=== PATIENT | male | born 1935 | race Caucasian/White ===

== ENCOUNTER → 2017-10-10 08:30 | Day surgery (SDC) | payer MEDICARE, SELFPAY ==
[2017-10-04 16:04] VITALS: BMI 27.6
[2017-10-10 09:20] VITALS: BP 125/69; PULSE 71; RESP 16; TEMP 36.3; O2SAT 94; BMI 27.6
[2017-10-10 09:43] LABS: INR 2.4 (0.9-1.3); Prothrombin Time 25.8 SECONDS (10.1-12.7)
[2017-10-10 09:51] LABS: C-Reactive Protein Quant 1.6 mg/dL (<1.0)
[2017-10-10 09:55] LABS: Erythrocyte Sedimentation Rate 57 MM/HR (0-15)
--- NOTE | 2017-10-10 10:02 | SUR.PREOP ---
patients case was canceled due to increased INR. pt's iv d/jodi and pt is getting dressed. No complaints voiced at present time. left foot dressing rewrapped and re dressed.
--- NOTE | 2017-10-10 10:05 | SUR.PREOP ---
patient is d/jodi with in wheelchair.
--- NOTE | 2017-10-10 10:09 | PM.PREOP ---
Pre-operative Note Interval Note Pre-op Check: History & Physical Reviewed by Physician H&P completed within 30 days and has changed as indicated here:: The patient was seen in the preoperative area point of care INR was 2.8. Formal lab INR was 2.4, and 2 high for surgery. This was discussed with the patient and his . Surgery was canceled for today due to persistent and high INR despite being off Coumadin for 1 week. Patient states he may have had an accidental dose or 2 during that time.
[2017-10-10 10:21] LABS: Prealbumin 19.4 mg/dL (17.6-36.0)
== END ==
PROVIDERS: PCP Physician Assistant; Visit Provider Orthopaedic Surgery Foot and Ankle Surgery
DX: E11.621 Type 2 diabetes mellitus with foot ulcer (principal); Z53.09 Procedure and treatment not carried out because of other contraindication
CPT/HCPCS: 28810; 82040; 84134; 85610; 85651; 86140

== ENCOUNTER → 2017-10-11 13:45 | Outpatient (CLI) | payer MEDICARE, SELFPAY | PROVIDERS: PCP Family Medicine; Visit Provider Internal Medicine | DX: E11.621 Type 2 diabetes mellitus with foot ulcer (principal); L97.522 Non-pressure chronic ulcer of other part of left foot with fat layer exposed; L97.512 Non-pressure chronic ulcer of other part of right foot with fat layer exposed; I70.248 Atherosclerosis of native arteries of left leg with ulceration of other part of lower leg; M79.671 Pain in right foot | CPT/HCPCS: 11042 ==

== ENCOUNTER → 2017-10-20 14:45 | Outpatient (CLI) | payer MEDICARE, SELFPAY | PROVIDERS: PCP Family Medicine; Visit Provider Internal Medicine | DX: E11.621 Type 2 diabetes mellitus with foot ulcer (principal); L97.522 Non-pressure chronic ulcer of other part of left foot with fat layer exposed; L97.512 Non-pressure chronic ulcer of other part of right foot with fat layer exposed; I70.248 Atherosclerosis of native arteries of left leg with ulceration of other part of lower leg; I70.238 Atherosclerosis of native arteries of right leg with ulceration of other part of lower leg | CPT/HCPCS: 11042; 87070; 87075; 87077; 87147; 87186; 87205 ==

== ENCOUNTER → 2017-10-24 15:04 | Outpatient (CLI) | payer MEDICARE, SELFPAY ==
--- NOTE | 2017-10-24 | DI.US.S_ITS ---
PROCEDURE: US SHAILESH LIMITED SINGLE LEVEL INDICATIONS: ARTERIAL INSUFFICENCY WITH ISCHEMIC ULCER TECHNIQUE: Ankle-brachial indices were obtained bilaterally and recorded. COMPARISONS: FINDINGS: Right ankle brachial index (SHAILESH): 0.52 Left ankle brachial index (SHAILESH): 0.63 IMPRESSION: 1. 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 2. 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 Dictated by: Rafita OLMEDO Interpreted: Raad Tobar MD on 10/24/2017 at 16:32 Approved by: Alonzo Beltran M.D. on 10/25/2017 at 8:56
== END ==
PROVIDERS: PCP Family Medicine; Visit Provider Orthopaedic Surgery Foot and Ankle Surgery
DX: I70.212 Atherosclerosis of native arteries of extremities with intermittent claudication, left leg (principal); I70.201 Unspecified atherosclerosis of native arteries of extremities, right leg
CPT/HCPCS: 93922

== ENCOUNTER → 2017-10-27 16:06 | Outpatient (CLI) | payer MEDICARE, SELFPAY | PROVIDERS: PCP Family Medicine; Visit Provider Internal Medicine | DX: E11.621 Type 2 diabetes mellitus with foot ulcer (principal); L97.522 Non-pressure chronic ulcer of other part of left foot with fat layer exposed; L97.512 Non-pressure chronic ulcer of other part of right foot with fat layer exposed; T81.89XD Other complications of procedures, not elsewhere classified, subsequent encounter; S71.102D Unspecified open wound, left thigh, subsequent encounter; I70.248 Atherosclerosis of native arteries of left leg with ulceration of other part of lower leg | CPT/HCPCS: 11042 ==

== ENCOUNTER → 2017-11-02 09:42 | Outpatient (CLI) | payer MEDICARE, SELFPAY ==
--- NOTE | 2017-11-02 | OV.WND_ITS ---
Progress Note Details Patient Name: Jay Lepe Patient Number: [id number] PatientPatientDate: 11/02/2017 Clinician: Chloe Gonzalez Clinician Cosigner: Diane Harrison Physician / Golf Player Assistant: Wilton Holland SUBJECTIVE Chief Complaint This information was obtained from the patient Diabetic foot ulcers to both feet and surgical wound on left thigh. Allergies Luxeyvj-Rhr-Afg Reductase Inhibitors, Sulfa (Sulfonamide Antibiotics), amlodipine HPI This information was obtained from the patient 11/02/17. Seen by Dr. Holland. The patient was seen by Dr. Jonas for the chronic , non- healing left foot Richards grade 3 diabetic ulcers and reportedly has been referred to a banana loader at with fellowship training in reconstructive foot surgery. He suffers from bilateral severe PAD which has complicated and contributed to the very refractory nature of the bilateral diabetic foot ulcers. He does not report increased pain or drainage from these ulcers nor from the slowly healing left thigh surgical wound that we've been monitoring. 10/27/17. Seen by Dr. Holland. The patient does not report any acute changes regarding his bilateral diabetic foot ulcers since his last visit. The wound culture taken from the non-healing left lateral thigh surgical site grew a coag negative Staph and he's been applying topical antibiotic as prescribed. He has an appointment later today with Dr. Jonas to discuss the SHAILESH study that was done on Tuesday and possible amputation of the left 5th MT and toe. He also saw his tunnel kiln operator, Dr. Finney, this week and states there was no change in his care plan. The patient notes he stopped taking spironolactone recently on his own accord however has not informed his other providers of this. He's also not discussed the option of a second opinion in relation to his left leg PAD and surgical options for the left 5th MT yet with his PCP as we'd discussed last week. 10/20/17. Seen by Dr. Holland. The patient does not report any acute changes regarding his bilateral diabetic foot ulcers and he's scheduled to have an SHAILESH study done next Tuesday to further evaluate his bilateral lower leg PAD that's significantly complicating his wound healing. He's also asked me to take a look at a non-healing left posterior thigh surgical wound at the site of a biopsy performed in early August. Of note, his anticoagulation was changed from warfarin to Eliquis since his last visit. 10/11/17. Seen by Dr. Holland. The patient's amputation of the left 5th met head was postponed due to and elevated INR. He also had another arterial Doppler performed today to reevaluate his left lower leg PAD. Of note, he underwent angioplasty under Dr. Rojas, interventional radiology, in August of this year and had angioplasty a few years ago with Dr. Malik whom the patient states accessed the left lower leg from the ankle. He does not report pain or increased drainage associated with the left foot diabetic ulcers but does report some pain associated with the right plantar foot diabetic ulcer. He also notes a new wound over the dorsum of the right foot but does not know how it occurred. His blood sugars have also been a bit elevated over 200 and he's using a walker and diabetic shoes while at home but a cane when away from the house. 09/30/2017. Seen by Dr. Holland. The patient is scheduled for amputation of the left 5th met head and toe next Tuesday. He does not report significant drainage or pain associated with the overlying diabetic ulcer nor the other left and right foot diabetic ulcers since his last visit. His blood sugars continue to be well controlled and he is not currently on antibiotics. 09/22/17. Seen by Dr. Holland. The patient feels his leg and abdominal swelling have been progressing over the past few weeks and he notes he's not sure who manages his diruetics. He does not report significant pain or increased drainage associated with the bilateral diabetic foot ulcers and he's scheduled to see Dr. Jonas later today to discuss surgical options to treat the left lateral and medial DFU's with exposed capsule. His blood sugars also are well controlled. Of note, he reports a growing left lateral thigh lesion also that he first noticed about one month ago. He does not report pain or drainage from the lesion and states he 's not yet discussed this with his PCP. 09/16/17. Seen by Dr. Holland. The patient reports some intermittent pain along the left fifth MTPJ at the site of the diabetic ulcer when walking. He does not report significant drainage associated with this ulcer and or the other left nor right foot diabetic ulcers since his last visit. He is scheduled to see Dr. Jonas next week who is considering possible amputation of the head of the left fifth metatarsal. 09/09/17. Seen by Dr. Holland. The patient was seen by Dr. Jonas today who's consider deep debridement of the left 5th MTPJ noting the overlying Richards grade 3 diabetic foot ulcer. She's reportedly deciding on what type of imaging to order and she performed some debridement today. The patient does not report pain or significant drainage from this site nor the other left and right foot diabetic ulcers. He also underwent angioplasty for his left lower leg PAD 2 weeks ago and does not report any complications. 08/31/17. Seen by Dr. Holland. The patient does not report pain or increased drainage associated with the bilateral foot diabetic ulcers since his last visit and he continues on clindamycin for the Staph haemolyticus positive wound culture taken from the left 5th MTPJ ulcer site last week. He's also scheduled to see Dr. Jonas a week from Tuesday for consideration of possible deep debridement of the left 5th MTPJ ulcer. 08/25/17. Seen by Dr. Holland. The patient does not report pain or increased drainage associated with the bilateral foot diabetic ulcers since his last visit and he's about a week out from angioplasty for left leg PAD. His wound culture taken from the exposed capsule of the left 5th MTPJ grew Staph haemolyticus and he's not currently on antibiotics. He does not report pain a the site nor fevers or feeling unwell in general. 08/19/17. Seen by Dr. Holland. The patient underwent angioplasty last for the left leg PAD and feels his leg pain has mostly resolved since the procedure. He does not report significant drainage or pain associated with the bilateral diabetic foot ulcers nor the left gluteal pressure ulcer and has been offloading the sites and changing dressings as recommended. Also, the patient's blood sugar is again elevated over 250 today and his has been an ongoing issue the past few weeks. 08/10/17. Seen by Dr. Holland. The patient does not report pain associated with the chronic left and right foot diabetic ulcers since his last visit and he's scheduled to see Dr. Rojas tomorrow for intervention to treat his severe PAD of the left lower leg. 08/05/17. Seen by Dr. Holland. The patient does not report pain associated with the chronic left and right foot diabetic ulcers since his last visit. He's scheduled to see Dr. 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 The patient also reports a new ulcer over the left buttock and states it's somewhat tender but he does not report significant drainage from the site. He's applying a topical antibiotic also. 07/29/17. Seen by Dr. Holland. The patient does not report pain associated with the chronic left and right foot diabetic ulcers since his last visit. His blood sugars a significantly elevated today over 250 and he states he ate strawberries last night which may be the cause. He 's also scheduled to see Dr. Rojas on the 08 of August to evaluate his left leg PAD and consider intervention at that time. 07/22/17. Seen by Mike Mireles PA-C. The patient reports no increase in pain or drainage from his ulcers of right and left lower extremities. His leg pain is reportedly stable as well. He notes some blood sugars this week above 150. 07/18/17. Seen by Mike Mireles PA-C. The patient reports bilateral leg pain that occurs with exertion and is relieved by rest. He is under the care of Dr. Malik (Cardiology) who was considering angioplasty to improve his lower extremity circulation but has deferred this option due to poor renal function. The patient reports continued drainage from his lower extremity ulcers. 07/08/17. Seen By Dr. Holland. The patient is a report pain nor significant drainage associated with the chronic right and left foot diabetic ulcers since his last visit. He does feel that the left first toe is a bit red and intermittently tender. His recent wound culture grew a coag-negative staph from the ulcer site and he does not report fevers or feeling unwell in general. 07/01/17. Seen by Dr. Holland. The patient reports some modest pain associated with the chronic right lateral plantar foot diabetic ulcer as well as the right heel diabetic ulcer. He does not report significant drainage drainage from the sites nor the other right and left lower leg diabetic ulcers. He is on Augmentin for the recent positive wound culture is not report any adverse side effects. 06/24/17. Seen by Mike Mireles PA-C. The patient returns to our clinic with diabetic ulcers of both feet and vascular ulcers of both lower legs. He is under the care of Dr. Malik, who ordered an arterial doppler earlier this week. The doppler shows multiple areas of stenosis and occlusion in both lower leg arteries. The patient reports that some of his current ulcers have been present for a very long time while others appeared within the past few days. He wears ugg boots and does not own diabetic shoes. 01/27/17. Seen by Dr. Holland. The patient returns to clinic with a posterior left lower leg ulcer that has been present for at least the past 6-12 months. Of note, the patient somewhat of a poor historian. He does not report pain at the site but states that it has been slowly increasing in size and has been bleeding recently and he's noticed a foul odor over the past few days. He does not report having a biopsy of this lesion and has been placed on antibiotics recently without any improvement. 11/27/[address] Holland. The patient reports that his right foot swelling continues to improve and there's been no drainage from the toe ulcers. 11/13/[address] Holland. The patient underwent additional PCI by Dr. Malik about one week ago and reports significant swelling in the right foot and lower leg the past few days. He does not report pain, fever, or chills and feels the right toe ulcers are improving and have minimal drainage. He's been using gentamicin ointment on the ulcer sites for a MRSA positive wound culture and systemic antibiotics have been deferred due to his history of severe c. difficile colitis. 10/28/14 Seen by Mike Mireles PA-C. The patient had PCI with Dr. Malik and reports that it was partially successful and that Dr. Malik plans to go in from a distal approach and attempt to open up more arteries in his right leg in 4-6 weeks time. The patient reports copious drainage from his toe wounds even after discontinuation of the topical gentamycin. 10/15/[address] Holland. The patient returns to our clinic with new right 2nd and 3rd toe ulcers and he's been referred by Dr. Malik, vascular surgery at [facility], who is planning PCI for severe PAD in the near future. He's not currently on antibiotics, reports minimal pain and drainage at the ulcer sites and he reports claudication but no rest pain today. Past Medical History This information was obtained from the patient Patient has a medical history of: Diabetes Mellitus Hypertension Coronary Artery Disease (CAD) Atrial fibrillation Carotid artery stenosis Transient Ischemic Attack (TIA) Atherosclerosis of lower extremity with claudication (s/p right leg PCI X2 by Dr. Malik in 11/04) Hyperlipidemia Aterial ulcers (right 2nd and 3rd toes; MRSA positive wound culture) Complaints and Symptoms This information was obtained from the patient Patient complains of: General Notes: I have reviewed and concur with the Review of Systems and Past Family Social History documents completed by the clinician, I have reviewed and concur with the Wound Assessment document completed by the clinician Cardiovascular (Central/Peripheral): Lower extremity (leg) swelling Ear/Nose/Mouth/Throat: Hearing Loss / Aid Hematologic/Lymphatic: Bleeding Tendency Integumentary (Hair/Skin/Nails): Open Sore Musculoskeletal: Muscle Weakness Neurological: Loss of Protective Sensation Prior Wound History: Drainage, Erythema, Pain Patient denies complaints or symptoms related to: Cardiovascular (Central): Irregular heart beat Cardiovascular (Central/Peripheral): Intermittent Claudication, Lower extremity (leg) resting pain Constitutional Symptoms (General Health): Chills, Fever, Marked Weight Change Gastrointestinal (GI): Nausea / Vomiting, Stomach/abdominal pain Hematologic/Lymphatic: Bleeding / Clotting Disorders Prior Wound History: Bleeding, Malodor Psychiatric: Memory Loss Respiratory: Oxygen Use, Shortness of Breath OBJECTIVE Constitutional BP elevated; Afebrile; Alert and in no distress. Well developed. Alert. Clean appearing.. Height/Length: 72 in (182.88 cm), Weight: 200.5 lbs (91.14 kgs), BMI: 27.2, Temperature: 97.8 ?F (36.56 ?C), Pulse: 79 bpm, Respiratory Rate: 18 breaths/min, Blood Pressure: 190/83 mmHg, Capillary Blood Glucose: 240 mg/dl, Pulse Oximetry: 94 %. Vital Signs Notes: Glucose per patient, after eating breakfast. Ears, Nose, Mouth, and Throat: Mild hearing deficit. Respiratory: No respiratory distress. Even respirations and without use of accessory muscles.. Cardiovascular: Non-palpable pedal pulses bilaterally. 1+ bilateral lower leg edema. Gastrointestinal (GI): Non-obese. Nondistended.. Integumentary (Hair, Skin) Mild periwound erythema without warmth. Refer to appropriate clinician wound documentation for this visit; right foot ulcer extends to subcut with base partially covered with pink granulation, remainder fibrin and slough, larger than on last review; left lateral foot ulcer extends to bone with overlying black, dry eschar; left 1st MTPJ ulcer extends to capsule which is covered with wet slough; left 1st toe ulcer extends to subcut with dry slough overlying base; left thigh wound extends to subcut with based mostly epithelialized. Wound #6 Right Metatarsal head fifth is a chronic Richards Grade 2 Diabetic Ulcer and has received a status of Not Healed. Subsequent wound encounter measurements are 0.5cm length x 0.5cm width x 0.3cm depth, with an area of 0.25 sq cm and a volume of 0.075 cubic cm. No tunneling has been noted. No sinus tract has been noted. Undermining has been noted at 2:00 and ends at 5:00 with a maximum distance of 0.4cm. There is a moderate amount of hemopurulent drainage noted which has no odor. The patient reports a wound pain of level 0/10. The wound margin is attached. Wound bed has Yes epithelialization, No eschar, Yes slough, Yes pink, firm granulation. The periwound skin moisture is normal. The periwound skin exhibited: Callus, Erythema. The periwound skin did not exhibit: Brawny Induration, Edema, Excoriation, Induration, Crepitus, Fluctuance, Friable, Rash, Atrophie [place], Cyanosis, Ecchymosis, Hemosiderosis , Pallor, Rubor. The temperature of the periwound skin is WNL. Periwound skin presents with s/s of infection. Confirmation Description and Treatment Plan is: Signs and Symptoms Present. Local Pulse is Doppler. Wound #11 Left Metatarsal head first is a chronic Richards Grade 3 Diabetic Ulcer and has received a status of Not Healed. Subsequent wound encounter measurements are 2.1cm length x 1.1cm width x 0.3cm depth, with an area of 2.31 sq cm and a volume of 0.693 cubic cm. Capsule is exposed. No tunneling has been noted. No sinus tract has been noted. No undermining has been noted. There is a moderate amount of sero-sanguineous drainage noted which has no odor. The patient reports a wound pain of level 0/10. The wound margin is attached. Wound bed has No epithelialization, Yes eschar, Yes slough, Yes pink, firm granulation. The periwound skin exhibited: Edema, Induration, Dry/Scaly, Erythema. The periwound skin did not exhibit: Brawny Induration, Excoriation, Callus, Crepitus, Fluctuance, Friable, Rash, Moist, Maceration, Atrophie [place], Cyanosis, Ecchymosis, Hemosiderosis, Pallor , Rubor. The temperature of the periwound skin is WNL. Periwound skin does not exhibit signs or symptoms of infection. Local Pulse is Doppler. Wound #12 Left Great Toe is a chronic Richards Grade 3 Diabetic Ulcer and has received a status of Not Healed. Subsequent wound encounter measurements are 1.2cm length x 0.7cm width x 0.3cm depth, with an area of 0.84 sq cm and a volume of 0.252 cubic cm. No tunneling has been noted. No sinus tract has been noted. No undermining has been noted. There is a moderate amount of sero-sanguineous drainage noted which has no odor. The patient reports a wound pain of level 0/10. The wound margin is callus. Wound bed has No epithelialization, Yes eschar, Yes slough, No granulation. The periwound skin moisture is normal. The periwound skin color is normal. The periwound skin exhibited: Edema, Callus. The periwound skin did not exhibit: Brawny Induration, Excoriation, Induration, Crepitus, Fluctuance, Friable, Rash. The temperature of the periwound skin is WNL. Periwound skin does not exhibit signs or symptoms of infection. Local Pulse is Doppler. Wound #13 Left Metatarsal head fifth is a chronic Richards Grade 3 Diabetic Ulcer and has received a status of Not Healed. Subsequent wound encounter measurements are 3.1cm length x 2.3cm width x 0.3cm depth, with an area of 7.13 sq cm and a volume of 2.139 cubic cm. Capsule is exposed. No tunneling has been noted. No sinus tract has been noted. No undermining has been noted. There is a small amount of sero-sanguineous drainage noted which has no odor. The patient reports a wound pain of level 0/10. The wound margin is attached. Wound bed has No epithelialization, Yes eschar, Yes slough, No granulation. The periwound skin moisture is normal. The periwound skin exhibited: Edema, Callus, Erythema. The periwound skin did not exhibit: Brawny Induration, Excoriation, Induration, Crepitus, Fluctuance, Friable, Rash. The temperature of the periwound skin is WNL. Periwound skin does not exhibit signs or symptoms of infection. Local Pulse is Doppler. Wound #17 Right, Lateral Foot is an acute Richards Grade 2 Diabetic Ulcer and has received an outcome of Healed - no new wound(s). Subsequent wound encounter measurements are 0cm length x 0cm width x 0cm depth, with an area of 0 sq cm and a volume of 0 cubic cm. There was no drainage noted. The patient reports a wound pain of level 0/10. The wound margin is attached. Wound bed has Yes epithelialization, No eschar, No slough, No granulation. The periwound skin moisture is normal. The periwound skin exhibited: Edema, Hemosiderosis. The periwound skin did not exhibit: Brawny Induration, Excoriation, Induration, Callus, Crepitus, Fluctuance, Friable, Rash, Atrophie [place], Cyanosis, Ecchymosis, Erythema, Pallor, Rubor. The temperature of the periwound skin is WNL. Periwound skin does not exhibit signs or symptoms of infection. Local Pulse is Palpable. Wound #18 Left Thigh is an acute Full Thickness Surgical Wound and has received a status of Not Healed. Subsequent wound encounter measurements are 0.5cm length x 0.2cm width x 0.1cm depth, with an area of 0.1 sq cm and a volume of 0.01 cubic cm. No tunneling has been noted. No sinus tract has been noted. No undermining has been noted. There is a small amount of sero-sanguineous drainage noted which has no odor. The patient reports a wound pain of level 0/10. The wound margin is attached. Wound bed has Yes epithelialization, No eschar, Yes slough, Yes pink, firm granulation. The periwound skin texture is normal. The periwound skin moisture is normal. The periwound skin color is normal. The temperature of the periwound skin is WNL. Periwound skin does not exhibit signs or symptoms of infection. Local Pulse is Doppler. Wound #19 Left Fifth Toe is an acute Richards Grade 2 Diabetic Ulcer and has received a status of Not Healed. Subsequent wound encounter measurements are 0.4cm length x 0.3cm width x 0.2cm depth, with an area of 0.12 sq cm and a volume of 0.024 cubic cm. No tunneling has been noted. No sinus tract has been noted. No undermining has been noted. There is a moderate amount of serous drainage noted which has no odor. The patient reports a wound pain of level 0/10. The wound margin is attached. Wound bed has No epithelialization, Yes eschar, Yes slough, No granulation. The periwound skin moisture is normal. The periwound skin color is normal. The periwound skin exhibited: Edema. The periwound skin did not exhibit: Brawny Induration, Excoriation, Induration, Callus, Crepitus, Fluctuance, Friable, Rash. The temperature of the periwound skin is WNL. Periwound skin does not exhibit signs or symptoms of infection. Local Pulse is Doppler. Neurological: Cranial nerves grossly intact with symmetric function normal by informal observation.. ASSESSMENT Active Problems ICD-10 (Encounter Diagnosis) L97.522 - Non-pressure chronic ulcer of other part of left foot with fat layer exposed (Encounter Diagnosis) L97.512 - Non-pressure chronic ulcer of other part of right foot with fat layer exposed (Encounter Diagnosis) E11.621 - Type 2 diabetes mellitus with foot ulcer (Encounter Diagnosis) L97.523 - Non-pressure chronic ulcer of other part of left foot with necrosis of muscle (Encounter Diagnosis) I70.248 - Atherosclerosis of [place] arteries of left leg with ulceration of other part of lower left leg (Encounter Diagnosis) S71.102D - Unspecified open wound, left thigh, subsequent encounter PROCEDURES Wound #6 Wound #6 (Diabetic Ulcer) is located on the right metatarsal head fifth. A skin/ subcutaneous tissue level surgical debridement with a total area debrided of 1.26 sq cm was performed by Wilton Holland MD. Subcutaneous was removed along with devitalized tissue: callus, exudate, and slough. The following instrument(s) were used: curette. Pain control was achieved using 4% Lido. A time out was conducted prior to the start of the procedure. A minimal amount of bleeding was controlled with pressure. The procedure was tolerated well with a pain level of 0 throughout and a pain level of 0 following the procedure. Post Debridement Measurements: 0.9cm length x 1.4cm width x 0.3cm depth; with an area of 1.26 sq cm and a volume of 0.378 cubic cm; Wound #18 Wound #18 (Surgical Wound) is located on the left thigh. A skin/subcutaneous tissue level surgical debridement with a total area debrided of 0.1 sq cm was performed by Wilton Holland MD. Subcutaneous was removed along with devitalized tissue: slough. The following instrument(s) were used: curette. Pain control was achieved using Lidocaine 2 % Jelly. A time out was conducted prior to the start of the procedure. A minimal amount of bleeding was controlled with n/a. The procedure was tolerated well with a pain level of 0 throughout and a pain level of 0 following the procedure. Post Debridement Measurements: 0.5cm length x 0.2cm width x 0.2cm depth; with an area of 0.1 sq cm and a volume of 0.02 cubic cm; Additional Information Muscle fascia or bone removed and sent to pathology?: No Muscle fascia or bone removed and sent to pathology?: No PLAN Wound Orders: Wound #6 Right Metatarsal head fifth Anesthetic Topical Xylocaine to wound bed. - In clinic. Cleanser Cleanse Wound: - Normal saline and gauze in clinic. May use distilled water at home. May Shower. - Use cast protector. Topical Treatments Antibiotic/Antimicrobial Ointment/Cream. - Gentamicin ointment. Dressings Primary dressing: - [place] pad cut in C shape, placed on plantar surface surrounding wound. Cover and secure with: - Foam secured with hypafix tape. Change Dressing: - Change felt pad every 3 days. Apply gentamicin ointment and change foam dressing daily. Wound #11 Left Metatarsal head first Anesthetic Topical Xylocaine to wound bed. - In clinic. Cleanser Cleanse Wound: - Normal saline and gauze in clinic. May use distilled water at home. May Shower. - Use cast protector. Dressings Cover and secure with: - Foam secured with hypafix tape. Change Dressing: - Every other day. Wound #12 Left Great Toe Anesthetic Topical Xylocaine to wound bed. - In clinic. Cleanser Cleanse Wound: - Normal saline and gauze in clinic. May use distilled water at home. May Shower. - Use cast protector. Dressings Cover and secure with: - Foam secured with hypafix tape. Change Dressing: - Every other day. Wound #13 Left Metatarsal head fifth Anesthetic Topical Xylocaine to wound bed. - In clinic. Cleanser Cleanse Wound: - Normal saline and gauze in clinic. May use distilled water at home. May Shower. - Use cast protector. Dressings Cover and secure with: - Foam secured with hypafix tape. Change Dressing: - Every other day. Wound #18 Left Thigh Anesthetic Topical Xylocaine to wound bed. - In clinic. Cleanser Cleanse Wound: - Normal saline and gauze in clinic. May use distilled water at home. May Shower. - Use cast protector. Dressings Cover and secure with: - Silicone bordered foam. Change Dressing: - Every three days. Wound #19 Left Fifth Toe Anesthetic Topical Xylocaine to wound bed. - In clinic. Cleanser Cleanse Wound: - Normal saline and gauze in clinic. May use distilled water at home. May Shower. - Use cast protector. Dressings Cover and secure with: - Foam secured with hypafix tape. Change Dressing: - Every other day. Additional Orders: Off-Loading Keep weight off: - Both feet as much as possible. Use/Wear when Walking: - Custom diabetic shoes. Follow-Up Appointments Return Appointment: - - One week. Other information: If you develop fever, chills, increased pain, drainage, redness or swelling please call our office. If after hours, respond to the ER. Should you experience any significant changes in your wound(s) or have any questions regarding your home care instructions please contact the wound center @ [phone]. If after hours, contact your primary care physician or go to the hospital emergency room. Scribing Attestation I attest, as the nurse, that I scribed these orders for the physician. Laboratory: Bacteria identified in Wound by Culture - #6 Right 5th metatarsal head. Medications prescribed: gentamicin - topical 0.1 % ointment once daily for 7 days for infected ulcer starting 11/02/2017 General Notes: Will call with culture results if any oral antibiotics are needed. I've reviewed the clinician's documentation and agree with the evaluation and plan as written. In addition the patient's right foot ulcer and left thigh demonstrate evidence of non-viable devitalized tissue and they will continue to benefit from sharp debridement to help promote granulation and expedite healing. Also, I've encouraged the patient to schedule an appointment with the banana loader who will be able to coordinate with a vascular surgeon in planning amputation of the left 5th MT and toe. 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 Electronic Signature(s) Signed By: Date: Wilton Holland MD 11/02/2017 15:30:00 Entered By: Wilton Holland on 11/02/2017 15:26:25
== END ==
PROVIDERS: PCP Family Medicine; Visit Provider Internal Medicine
DX: E11.621 Type 2 diabetes mellitus with foot ulcer (principal); L97.512 Non-pressure chronic ulcer of other part of right foot with fat layer exposed; L97.523 Non-pressure chronic ulcer of other part of left foot with necrosis of muscle; I70.248 Atherosclerosis of native arteries of left leg with ulceration of other part of lower leg; S71.102A Unspecified open wound, left thigh, initial encounter
CPT/HCPCS: 11042; 87070; 87075; 87077; 87205

== ENCOUNTER → 2017-11-09 13:58 | Outpatient (CLI) | payer MEDICARE, SELFPAY ==
--- NOTE | 2017-11-09 | OV.WND_ITS ---
Progress Note Details Patient Name: Jay Lepe Patient Number: [id number] PatientPatientDate: 11/09/2017 Clinician: Chloe Gonzalez Clinician Cosigner: Pat Harper Physician / Air Sampler: Igor Mireles SUBJECTIVE Chief Complaint This information was obtained from the patient Diabetic foot ulcers to both feet and surgical wound on left thigh. Allergies Fduzmei-Ual-Ohe Reductase Inhibitors, Sulfa (Sulfonamide Antibiotics), amlodipine HPI This information was obtained from the patient 11/09/17. Seen by Mike Mireles PA-C. The patient reports that he has an appointment tomorrow with a vascular surgeon at the in [place] who will take on his case. Drainage from his ulcers has not increased. 11/02/17. Seen by Dr. Holland. The patient was seen by Dr. Jonas for the chronic , non- healing left foot Richards grade 3 diabetic ulcers and reportedly has been referred to a skull chopper at with fellowship training in reconstructive foot surgery. He suffers from bilateral severe PAD which has complicated and contributed to the very refractory nature of the bilateral diabetic foot ulcers. He does not report increased pain or drainage from these ulcers nor from the slowly healing left thigh surgical wound that we've been monitoring. 10/27/17. Seen by Dr. Holland. The patient does not report any acute changes regarding his bilateral diabetic foot ulcers since his last visit. The wound culture taken from the non-healing left lateral thigh surgical site grew a coag negative Staph and he's been applying topical antibiotic as prescribed. He has an appointment later today with Dr. Jonas to discuss the SHAILESH study that was done on Tuesday and possible amputation of the left 5th MT and toe. He also saw his winch stripper, Dr. Finney, this week and states there was no change in his care plan. The patient notes he stopped taking spironolactone recently on his own accord however has not informed his other providers of this. He's also not discussed the option of a second opinion in relation to his left leg PAD and surgical options for the left 5th MT yet with his PCP as we'd discussed last week. 10/20/17. Seen by Dr. Holland. The patient does not report any acute changes regarding his bilateral diabetic foot ulcers and he's scheduled to have an SHAILESH study done next Tuesday to further evaluate his bilateral lower leg PAD that's significantly complicating his wound healing. He's also asked me to take a look at a non-healing left posterior thigh surgical wound at the site of a biopsy performed in early August. Of note, his anticoagulation was changed from warfarin to Eliquis since his last visit. 10/11/17. Seen by Dr. Holland. The patient's amputation of the left 5th met head was postponed due to and elevated INR. He also had another arterial Doppler performed today to reevaluate his left lower leg PAD. Of note, he underwent angioplasty under Dr. Rojas, interventional radiology, in August of this year and had angioplasty a few years ago with Dr. Malik whom the patient states accessed the left lower leg from the ankle. He does not report pain or increased drainage associated with the left foot diabetic ulcers but does report some pain associated with the right plantar foot diabetic ulcer. He also notes a new wound over the dorsum of the right foot but does not know how it occurred. His blood sugars have also been a bit elevated over 200 and he's using a walker and diabetic shoes while at home but a cane when away from the house. 09/30/2017. Seen by Dr. Holland. The patient is scheduled for amputation of the left 5th met head and toe next Tuesday. He does not report significant drainage or pain associated with the overlying diabetic ulcer nor the other left and right foot diabetic ulcers since his last visit. His blood sugars continue to be well controlled and he is not currently on antibiotics. 09/22/17. Seen by Dr. Holland. The patient feels his leg and abdominal swelling have been progressing over the past few weeks and he notes he's not sure who manages his diruetics. He does not report significant pain or increased drainage associated with the bilateral diabetic foot ulcers and he's scheduled to see Dr. Jonas later today to discuss surgical options to treat the left lateral and medial DFU's with exposed capsule. His blood sugars also are well controlled. Of note, he reports a growing left lateral thigh lesion also that he first noticed about one month ago. He does not report pain or drainage from the lesion and states he 's not yet discussed this with his PCP. 09/16/17. Seen by Dr. Holland. The patient reports some intermittent pain along the left fifth MTPJ at the site of the diabetic ulcer when walking. He does not report significant drainage associated with this ulcer and or the other left nor right foot diabetic ulcers since his last visit. He is scheduled to see Dr. Jonas next week who is considering possible amputation of the head of the left fifth metatarsal. 09/09/17. Seen by Dr. Holland. The patient was seen by Dr. Jonas today who's consider deep debridement of the left 5th MTPJ noting the overlying Richards grade 3 diabetic foot ulcer. She's reportedly deciding on what type of imaging to order and she performed some debridement today. The patient does not report pain or significant drainage from this site nor the other left and right foot diabetic ulcers. He also underwent angioplasty for his left lower leg PAD 2 weeks ago and does not report any complications. 08/31/17. Seen by Dr. Holland. The patient does not report pain or increased drainage associated with the bilateral foot diabetic ulcers since his last visit and he continues on clindamycin for the Staph haemolyticus positive wound culture taken from the left 5th MTPJ ulcer site last week. He's also scheduled to see Dr. Jonas a week from Tuesday for consideration of possible deep debridement of the left 5th MTPJ ulcer. 08/25/17. Seen by Dr. Holland. The patient does not report pain or increased drainage associated with the bilateral foot diabetic ulcers since his last visit and he's about a week out from angioplasty for left leg PAD. His wound culture taken from the exposed capsule of the left 5th MTPJ grew Staph haemolyticus and he's not currently on antibiotics. He does not report pain a the site nor fevers or feeling unwell in general. 08/19/17. Seen by Dr. Holland. The patient underwent angioplasty last for the left leg PAD and feels his leg pain has mostly resolved since the procedure. He does not report significant drainage or pain associated with the bilateral diabetic foot ulcers nor the left gluteal pressure ulcer and has been offloading the sites and changing dressings as recommended. Also, the patient's blood sugar is again elevated over 250 today and his has been an ongoing issue the past few weeks. 08/10/17. Seen by Dr. Holland. The patient does not report pain associated with the chronic left and right foot diabetic ulcers since his last visit and he's scheduled to see Dr. Rojas tomorrow for intervention to treat his severe PAD of the left lower leg. 08/05/17. Seen by Dr. Holland. The patient does not report pain associated with the chronic left and right foot diabetic ulcers since his last visit. He's scheduled to see Dr. 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 The patient also reports a new ulcer over the left buttock and states it's somewhat tender but he does not report significant drainage from the site. He's applying a topical antibiotic also. 07/29/17. Seen by Dr. Holland. The patient does not report pain associated with the chronic left and right foot diabetic ulcers since his last visit. His blood sugars a significantly elevated today over 250 and he states he ate strawberries last night which may be the cause. He 's also scheduled to see Dr. Rojas on the 08 of August to evaluate his left leg PAD and consider intervention at that time. 07/22/17. Seen by Mike Mireles PA-C. The patient reports no increase in pain or drainage from his ulcers of right and left lower extremities. His leg pain is reportedly stable as well. He notes some blood sugars this week above 150. 07/18/17. Seen by Mike Mireles PA-C. The patient reports bilateral leg pain that occurs with exertion and is relieved by rest. He is under the care of Dr. Malik (Cardiology) who was considering angioplasty to improve his lower extremity circulation but has deferred this option due to poor renal function. The patient reports continued drainage from his lower extremity ulcers. 07/08/17. Seen By Dr. Holland. The patient is a report pain nor significant drainage associated with the chronic right and left foot diabetic ulcers since his last visit. He does feel that the left first toe is a bit red and intermittently tender. His recent wound culture grew a coag-negative staph from the ulcer site and he does not report fevers or feeling unwell in general. 07/01/17. Seen by Dr. Holland. The patient reports some modest pain associated with the chronic right lateral plantar foot diabetic ulcer as well as the right heel diabetic ulcer. He does not report significant drainage drainage from the sites nor the other right and left lower leg diabetic ulcers. He is on Augmentin for the recent positive wound culture is not report any adverse side effects. 06/24/17. Seen by Mike Mireles PA-C. The patient returns to our clinic with diabetic ulcers of both feet and vascular ulcers of both lower legs. He is under the care of Dr. Malik, who ordered an arterial doppler earlier this week. The doppler shows multiple areas of stenosis and occlusion in both lower leg arteries. The patient reports that some of his current ulcers have been present for a very long time while others appeared within the past few days. He wears ugg boots and does not own diabetic shoes. 01/27/17. Seen by Dr. Holland. The patient returns to clinic with a posterior left lower leg ulcer that has been present for at least the past 6-12 months. Of note, the patient somewhat of a poor historian. He does not report pain at the site but states that it has been slowly increasing in size and has been bleeding recently and he's noticed a foul odor over the past few days. He does not report having a biopsy of this lesion and has been placed on antibiotics recently without any improvement. 11/27/[address] Holland. The patient reports that his right foot swelling continues to improve and there's been no drainage from the toe ulcers. 11/13/[address] Holland. The patient underwent additional PCI by Dr. Malik about one week ago and reports significant swelling in the right foot and lower leg the past few days. He does not report pain, fever, or chills and feels the right toe ulcers are improving and have minimal drainage. He's been using gentamicin ointment on the ulcer sites for a MRSA positive wound culture and systemic antibiotics have been deferred due to his history of severe c. difficile colitis. 10/28/14 Seen by Mike Mireles PA-C. The patient had PCI with Dr. Malik and reports that it was partially successful and that Dr. Malik plans to go in from a distal approach and attempt to open up more arteries in his right leg in 4-6 weeks time. The patient reports copious drainage from his toe wounds even after discontinuation of the topical gentamycin. 10/15/[address] Holland. The patient returns to our clinic with new right 2nd and 3rd toe ulcers and he's been referred by Dr. Malik, vascular surgery at [facility], who is planning PCI for severe PAD in the near future. He's not currently on antibiotics, reports minimal pain and drainage at the ulcer sites and he reports claudication but no rest pain today. Family History This information was obtained from the patient Unknown History - Maternal Grandparents, Paternal Grandparents, Cancer - Sibling , Diabetes - Mother, Father, Hypertension - Mother, Other - Mother, Stroke - Father Social History This information was obtained from the patient Never smoker, Alcohol Use - None, Caffeine Use - None, Marital Status - , Retired Past Medical History This information was obtained from the patient Patient has a medical history of: Diabetes Mellitus Hypertension Coronary Artery Disease (CAD) Atrial fibrillation Carotid artery stenosis Transient Ischemic Attack (TIA) Atherosclerosis of lower extremity with claudication (s/p right leg PCI X2 by Dr. Malik in 11/04) Hyperlipidemia Aterial ulcers (right 2nd and 3rd toes; MRSA positive wound culture) Complaints and Symptoms This information was obtained from the patient Patient complains of: General Notes: I have reviewed and concur with the Review of Systems and Past Family Social History documents completed by the clinician, I have reviewed and concur with the Wound Assessment document completed by the clinician Cardiovascular (Central/Peripheral): Lower extremity (leg) swelling Ear/Nose/Mouth/Throat: Hearing Loss / Aid Hematologic/Lymphatic: Bleeding Tendency Integumentary (Hair/Skin/Nails): Open Sore Musculoskeletal: Muscle Weakness Neurological: Loss of Protective Sensation Prior Wound History: Drainage, Erythema, Pain Patient denies complaints or symptoms related to: Cardiovascular (Central): Irregular heart beat Cardiovascular (Central/Peripheral): Intermittent Claudication, Lower extremity (leg) resting pain Constitutional Symptoms (General Health): Chills, Fever, Marked Weight Change Gastrointestinal (GI): Nausea / Vomiting, Stomach/abdominal pain Hematologic/Lymphatic: Bleeding / Clotting Disorders Prior Wound History: Bleeding, Malodor Psychiatric: Memory Loss Respiratory: Oxygen Use, Shortness of Breath OBJECTIVE Constitutional Vital signs reviewed and noted. Well developed, lucid, and in no acute distress. . Height/Length: 72 in (182.88 cm), Weight: 200.5 lbs (91.14 kgs), BMI: 27.2, Temperature: 97.7 ?F (36.5 ?C), Pulse: 73 bpm, Respiratory Rate: 18 breaths/min, Blood Pressure: 142/74 mmHg, Capillary Blood Glucose: 104 mg/dl, Pulse Oximetry: 94 %. Vital Signs Notes: Glucose taken in clinic. Eyes: Conjunctiva clear and without icterus. Pupils are equal and round; EOM's intact. Ears, Nose, Mouth, and Throat: Grossly intact. Respiratory: No respiratory distress. Even respirations and without use of accessory muscles.. Integumentary (Hair, Skin) Refer to appropriate clinician wound documentation for this visit; ulcer extends to subcutaneous fat layer. . Wound #6 Right Metatarsal head fifth is a chronic Richards Grade 2 Diabetic Ulcer and has received a status of Not Healed. Subsequent wound encounter measurements are 0.6cm length x 1.1cm width x 0.2cm depth, with an area of 0.66 sq cm and a volume of 0.132 cubic cm. No tunneling has been noted. No sinus tract has been noted. Undermining has been noted at 4:00 and ends at 9:00 with a maximum distance of 0.2cm. There is a moderate amount of sero-sanguineous drainage noted which has no odor. The patient reports a wound pain of level 0/10. The wound margin is attached. Wound bed has Yes epithelialization, No eschar, Yes slough, Yes pink, firm granulation. The periwound skin moisture is normal. The periwound skin exhibited: Callus, Erythema. The periwound skin did not exhibit: Brawny Induration, Edema, Excoriation, Induration, Crepitus, Fluctuance, Friable, Rash, Atrophie [place], Cyanosis, Ecchymosis, Hemosiderosis , Pallor, Rubor. The temperature of the periwound skin is WNL. Periwound skin does not exhibit signs or symptoms of infection. Local Pulse is Doppler. Wound #11 Left Metatarsal head first is a chronic Richards Grade 3 Diabetic Ulcer and has received a status of Not Healed. Subsequent wound encounter measurements are 2.1cm length x 1.2cm width x 0.2cm depth, with an area of 2.52 sq cm and a volume of 0.504 cubic cm. Capsule is exposed. No tunneling has been noted. No sinus tract has been noted. No undermining has been noted. There is a moderate amount of sero-sanguineous drainage noted which has no odor. The patient reports a wound pain of level 0/10. The wound margin is attached. Wound bed has No epithelialization, No eschar, Yes slough, No granulation. The periwound skin exhibited: Edema, Induration, Moist, Erythema. The periwound skin did not exhibit: Brawny Induration, Excoriation, Callus, Crepitus, Fluctuance, Friable, Rash, Dry/Scaly, Maceration, Atrophie [place], Cyanosis, Ecchymosis, Hemosiderosis, Pallor, Rubor. The temperature of the periwound skin is WNL. Periwound skin does not exhibit signs or symptoms of infection. Local Pulse is Doppler. Wound #12 Left Great Toe is a chronic Richards Grade 3 Diabetic Ulcer and has received a status of Not Healed. Subsequent wound encounter measurements are 1.2cm length x 0.7cm width x 0.3cm depth, with an area of 0.84 sq cm and a volume of 0.252 cubic cm. No tunneling has been noted. No sinus tract has been noted. No undermining has been noted. There is a moderate amount of sero-sanguineous drainage noted which has no odor. The patient reports a wound pain of level 0/10. The wound margin is callus. Wound bed has No epithelialization, Yes eschar, Yes slough, Yes bright red, pink, firm granulation. The periwound skin moisture is normal. The periwound skin color is normal. The periwound skin exhibited: Edema, Callus. The periwound skin did not exhibit: Brawny Induration, Excoriation, Induration, Crepitus, Fluctuance, Friable, Rash. The temperature of the periwound skin is WNL. Periwound skin does not exhibit signs or symptoms of infection. Local Pulse is Doppler. Wound #13 Left Metatarsal head fifth is a chronic Richards Grade 3 Diabetic Ulcer and has received a status of Not Healed. Subsequent wound encounter measurements are 3.1cm length x 2.3cm width x 0.4cm depth, with an area of 7.13 sq cm and a volume of 2.852 cubic cm. Capsule is exposed. No tunneling has been noted. No sinus tract has been noted. No undermining has been noted. There is a small amount of sero-sanguineous drainage noted which has no odor. The patient reports a wound pain of level 0/10. The wound margin is attached. Wound bed has No epithelialization, Yes eschar, Yes slough, Yes bright red, firm granulation. The periwound skin moisture is normal. The periwound skin exhibited: Edema, Callus, Erythema. The periwound skin did not exhibit: Brawny Induration, Excoriation, Induration, Crepitus, Fluctuance, Friable, Rash. The temperature of the periwound skin is WNL. Periwound skin does not exhibit signs or symptoms of infection. Local Pulse is Doppler. Wound #18 Left Thigh is an acute Full Thickness Surgical Wound and has received a status of Not Healed. Subsequent wound encounter measurements are 0.2cm length x 0.1cm width x 0.1cm depth, with an area of 0.02 sq cm and a volume of 0.002 cubic cm. No tunneling has been noted. No sinus tract has been noted. No undermining has been noted. There is a small amount of sero-sanguineous drainage noted which has no odor. The patient reports a wound pain of level 0/10. The wound margin is attached. Wound bed has Yes epithelialization, No eschar, Yes slough, Yes pink, firm granulation. The periwound skin texture is normal. The periwound skin moisture is normal. The periwound skin color is normal. The temperature of the periwound skin is WNL. Periwound skin does not exhibit signs or symptoms of infection. Local Pulse is Doppler. Wound #19 Left Fifth Toe is an acute Richards Grade 2 Diabetic Ulcer and has received a status of Not Healed. Subsequent wound encounter measurements are 0.3cm length x 0.3cm width x 0.2cm depth, with an area of 0.09 sq cm and a volume of 0.018 cubic cm. No tunneling has been noted. No sinus tract has been noted. No undermining has been noted. There is a moderate amount of serous drainage noted which has no odor. The patient reports a wound pain of level 0/10. The wound margin is attached. Wound bed has No epithelialization, No eschar, Yes slough, No granulation. The periwound skin moisture is normal. The periwound skin color is normal. The periwound skin exhibited: Edema. The periwound skin did not exhibit: Brawny Induration, Excoriation, Induration, Callus, Crepitus, Fluctuance, Friable, Rash. The temperature of the periwound skin is WNL. Periwound skin does not exhibit signs or symptoms of infection. Local Pulse is Doppler. Psychiatric: Judgement and insight: Normal affect with normal thought pattern. Alert and oriented 3/3. Memory grossly intact.. Normal affect. Mood appropriate.. ASSESSMENT Active Problems ICD-10 (Encounter Diagnosis) L97.522 - Non-pressure chronic ulcer of other part of left foot with fat layer exposed (Encounter Diagnosis) L97.512 - Non-pressure chronic ulcer of other part of right foot with fat layer exposed (Encounter Diagnosis) E11.621 - Type 2 diabetes mellitus with foot ulcer (Encounter Diagnosis) L97.523 - Non-pressure chronic ulcer of other part of left foot with necrosis of muscle (Encounter Diagnosis) I70.248 - Atherosclerosis of mcgrath arteries of left leg with ulceration of other part of lower left leg (Encounter Diagnosis) S71.102D - Unspecified open wound, left thigh, subsequent encounter PLAN Wound Orders: Wound #6 Right Metatarsal head fifth Anesthetic Topical Xylocaine to wound bed. - In clinic. Cleanser Cleanse Wound: - Normal saline and gauze in clinic. May use distilled water at home. May Shower. - Use cast protector. Dressings Primary dressing: - Silver alginate cut to fit in wound base. Cover and secure with: - Foam secured with hypafix tape. Change Dressing: - Every other day. Wound #11 Left Metatarsal head first Anesthetic Topical Xylocaine to wound bed. - In clinic. Cleanser Cleanse Wound: - Normal saline and gauze in clinic. May use distilled water at home. May Shower. - Use cast protector. Dressings Primary dressing: - Silver alginate cut to fit in wound base. Cover and secure with: - Foam secured with hypafix tape. Change Dressing: - Every other day. Wound #12 Left Great Toe Anesthetic Topical Xylocaine to wound bed. - In clinic. Cleanser Cleanse Wound: - Normal saline and gauze in clinic. May use distilled water at home. May Shower. - Use cast protector. Dressings Primary dressing: - Silver alginate cut to fit in wound base. Cover and secure with: - Foam secured with hypafix tape. Change Dressing: - Every other day. Wound #13 Left Metatarsal head fifth Anesthetic Topical Xylocaine to wound bed. - In clinic. Cleanser Cleanse Wound: - Normal saline and gauze in clinic. May use distilled water at home. May Shower. - Use cast protector. Dressings Primary dressing: - Silver alginate cut to fit in wound base. Cover and secure with: - Foam secured with hypafix tape. Change Dressing: - Every other day. Wound #18 Left Thigh Anesthetic Topical Xylocaine to wound bed. - In clinic. Cleanser Cleanse Wound: - Normal saline and gauze in clinic. May use distilled water at home. May Shower. - Use cast protector. Topical Treatments Antibiotic/Antimicrobial Ointment/Cream. - Silver hydrogel. Dressings Cover and secure with: - Covrsite 4x4. Change Dressing: - Twice a week. Wound #19 Left Fifth Toe Anesthetic Topical Xylocaine to wound bed. - In clinic. Cleanser Cleanse Wound: - Normal saline and gauze in clinic. May use distilled water at home. May Shower. - Use cast protector. Dressings Primary dressing: - Silver alginate cut to fit in wound base. Cover and secure with: - Foam secured with hypafix tape. Change Dressing: - Every other day. Additional Orders: Off-Loading Keep weight off: - Both feet as much as possible. Use/Wear when Walking: - Custom diabetic shoes. Follow-Up Appointments Return Appointment: - - One week. Other information: If you develop fever, chills, increased pain, drainage, redness or swelling please call our office. If after hours, respond to the ER. Should you experience any significant changes in your wound(s) or have any questions regarding your home care instructions please contact the wound center @ [phone]. If after hours, contact your primary care physician or go to the hospital emergency room. Scribing Attestation I attest, as the nurse, that I scribed these orders for the physician. General Notes: Podiatry consult at scheduled for tomorrow, please call us with any updates. I've reviewed the clinician's documentation and agree with the evaluation and plan as written. Greater than 25 minutes were spent [id number] with the patient during this encounter and over 50% of that time was spent on education, counseling and coordination of care. We discussed how we will work together with the [facility] to manage his case. Electronic Signature(s) Signed By: Date: Mike Mireles 11/13/2017 16:56:38 Entered By: Mike Mireles on 11/13/2017 16:24:21
== END ==
PROVIDERS: PCP Family Medicine; Visit Provider Physician Assistant
DX: E11.621 Type 2 diabetes mellitus with foot ulcer (principal); L97.522 Non-pressure chronic ulcer of other part of left foot with fat layer exposed; L97.512 Non-pressure chronic ulcer of other part of right foot with fat layer exposed; I70.248 Atherosclerosis of native arteries of left leg with ulceration of other part of lower leg; S71.102D Unspecified open wound, left thigh, subsequent encounter
CPT/HCPCS: 99215

== ENCOUNTER → 2017-11-15 15:23 | Outpatient (CLI) | payer MEDICARE, SELFPAY ==
--- NOTE | 2017-11-15 | OV.WND_ITS ---
Progress Note Details Patient Name: Jay Lepe Patient Number: [id number] PatientPatientDate: 11/15/2017 Clinician: Pat Harper Clinician Cosigner: Diane Harrison Physician / Horse Racetrack Manager: Wilton Holland SUBJECTIVE Chief Complaint This information was obtained from the patient Diabetic foot ulcers to both feet and surgical wound on left thigh. Allergies Uukqwnw-Cvt-Tko Reductase Inhibitors, Sulfa (Sulfonamide Antibiotics), amlodipine HPI This information was obtained from the patient 11/15/17. Seen by Dr. Holland. The patient was seen by podiatry for the left foot diabetic ulcers at who's now referred to vascular surgery due to his severe left leg PAD. He does not yet have an appointment however. He does continue to report pain in the foot also. Of note, his weight is up 10 lbs in the past 2 weeks and he reports orthopnea since stopping his Lasix. Regarding the right plantar foot diabetic ulcer, he does not report pain or significant drainage from this site. 11/09/17. Seen by Mike Mireles PA-C. The patient reports that he has an appointment tomorrow with a vascular surgeon at the in [place] who will take on his case. Drainage from his ulcers has not increased. 11/02/17. Seen by Dr. Holland. The patient was seen by Dr. Jonas for the chronic , non- healing left foot Richards grade 3 diabetic ulcers and reportedly has been referred to a machine bobbin winder at with fellowship training in reconstructive foot surgery. He suffers from bilateral severe PAD which has complicated and contributed to the very refractory nature of the bilateral diabetic foot ulcers. He does not report increased pain or drainage from these ulcers nor from the slowly healing left thigh surgical wound that we've been monitoring. 10/27/17. Seen by Dr. Holland. The patient does not report any acute changes regarding his bilateral diabetic foot ulcers since his last visit. The wound culture taken from the non-healing left lateral thigh surgical site grew a coag negative Staph and he's been applying topical antibiotic as prescribed. He has an appointment later today with Dr. Jonas to discuss the SHAILESH study that was done on Tuesday and possible amputation of the left 5th MT and toe. He also saw his die sinking machine operator, Dr. Finney, this week and states there was no change in his care plan. The patient notes he stopped taking spironolactone recently on his own accord however has not informed his other providers of this. He's also not discussed the option of a second opinion in relation to his left leg PAD and surgical options for the left 5th MT yet with his PCP as we'd discussed last week. 10/20/17. Seen by Dr. Holland. The patient does not report any acute changes regarding his bilateral diabetic foot ulcers and he's scheduled to have an SHAILESH study done next Tuesday to further evaluate his bilateral lower leg PAD that's significantly complicating his wound healing. He's also asked me to take a look at a non-healing left posterior thigh surgical wound at the site of a biopsy performed in early August. Of note, his anticoagulation was changed from warfarin to Eliquis since his last visit. 10/11/17. Seen by Dr. Holland. The patient's amputation of the left 5th met head was postponed due to and elevated INR. He also had another arterial Doppler performed today to reevaluate his left lower leg PAD. Of note, he underwent angioplasty under Dr. Rojas, interventional radiology, in August of this year and had angioplasty a few years ago with Dr. Malik whom the patient states accessed the left lower leg from the ankle. He does not report pain or increased drainage associated with the left foot diabetic ulcers but does report some pain associated with the right plantar foot diabetic ulcer. He also notes a new wound over the dorsum of the right foot but does not know how it occurred. His blood sugars have also been a bit elevated over 200 and he's using a walker and diabetic shoes while at home but a cane when away from the house. 09/30/2017. Seen by Dr. Holland. The patient is scheduled for amputation of the left 5th met head and toe next Tuesday. He does not report significant drainage or pain associated with the overlying diabetic ulcer nor the other left and right foot diabetic ulcers since his last visit. His blood sugars continue to be well controlled and he is not currently on antibiotics. 09/22/17. Seen by Dr. Holland. The patient feels his leg and abdominal swelling have been progressing over the past few weeks and he notes he's not sure who manages his diruetics. He does not report significant pain or increased drainage associated with the bilateral diabetic foot ulcers and he's scheduled to see Dr. Jonas later today to discuss surgical options to treat the left lateral and medial DFU's with exposed capsule. His blood sugars also are well controlled. Of note, he reports a growing left lateral thigh lesion also that he first noticed about one month ago. He does not report pain or drainage from the lesion and states he 's not yet discussed this with his PCP. 09/16/17. Seen by Dr. Holland. The patient reports some intermittent pain along the left fifth MTPJ at the site of the diabetic ulcer when walking. He does not report significant drainage associated with this ulcer and or the other left nor right foot diabetic ulcers since his last visit. He is scheduled to see Dr. Jonas next week who is considering possible amputation of the head of the left fifth metatarsal. 09/09/17. Seen by Dr. Holland. The patient was seen by Dr. Jonas today who's consider deep debridement of the left 5th MTPJ noting the overlying Richards grade 3 diabetic foot ulcer. She's reportedly deciding on what type of imaging to order and she performed some debridement today. The patient does not report pain or significant drainage from this site nor the other left and right foot diabetic ulcers. He also underwent angioplasty for his left lower leg PAD 2 weeks ago and does not report any complications. 08/31/17. Seen by Dr. Holland. The patient does not report pain or increased drainage associated with the bilateral foot diabetic ulcers since his last visit and he continues on clindamycin for the Staph haemolyticus positive wound culture taken from the left 5th MTPJ ulcer site last week. He's also scheduled to see Dr. Jonas a week from Tuesday for consideration of possible deep debridement of the left 5th MTPJ ulcer. 08/25/17. Seen by Dr. Holland. The patient does not report pain or increased drainage associated with the bilateral foot diabetic ulcers since his last visit and he's about a week out from angioplasty for left leg PAD. His wound culture taken from the exposed capsule of the left 5th MTPJ grew Staph haemolyticus and he's not currently on antibiotics. He does not report pain a the site nor fevers or feeling unwell in general. 08/19/17. Seen by Dr. Holland. The patient underwent angioplasty last for the left leg PAD and feels his leg pain has mostly resolved since the procedure. He does not report significant drainage or pain associated with the bilateral diabetic foot ulcers nor the left gluteal pressure ulcer and has been offloading the sites and changing dressings as recommended. Also, the patient's blood sugar is again elevated over 250 today and his has been an ongoing issue the past few weeks. 08/10/17. Seen by Dr. Holland. The patient does not report pain associated with the chronic left and right foot diabetic ulcers since his last visit and he's scheduled to see Dr. Rojas tomorrow for intervention to treat his severe PAD of the left lower leg. 08/05/17. Seen by Dr. Holland. The patient does not report pain associated with the chronic left and right foot diabetic ulcers since his last visit. He's scheduled to see Dr. 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 The patient also reports a new ulcer over the left buttock and states it's somewhat tender but he does not report significant drainage from the site. He's applying a topical antibiotic also. 07/29/17. Seen by Dr. Holland. The patient does not report pain associated with the chronic left and right foot diabetic ulcers since his last visit. His blood sugars a significantly elevated today over 250 and he states he ate strawberries last night which may be the cause. He 's also scheduled to see Dr. Rojas on the 08 of August to evaluate his left leg PAD and consider intervention at that time. 07/22/17. Seen by Mike Mireles PA-C. The patient reports no increase in pain or drainage from his ulcers of right and left lower extremities. His leg pain is reportedly stable as well. He notes some blood sugars this week above 150. 07/18/17. Seen by Mike Mireles PA-C. The patient reports bilateral leg pain that occurs with exertion and is relieved by rest. He is under the care of Dr. Malik (Cardiology) who was considering angioplasty to improve his lower extremity circulation but has deferred this option due to poor renal function. The patient reports continued drainage from his lower extremity ulcers. 07/08/17. Seen By Dr. Holland. The patient is a report pain nor significant drainage associated with the chronic right and left foot diabetic ulcers since his last visit. He does feel that the left first toe is a bit red and intermittently tender. His recent wound culture grew a coag-negative staph from the ulcer site and he does not report fevers or feeling unwell in general. 07/01/17. Seen by Dr. Holland. The patient reports some modest pain associated with the chronic right lateral plantar foot diabetic ulcer as well as the right heel diabetic ulcer. He does not report significant drainage drainage from the sites nor the other right and left lower leg diabetic ulcers. He is on Augmentin for the recent positive wound culture is not report any adverse side effects. 06/24/17. Seen by Mike Mireles PA-C. The patient returns to our clinic with diabetic ulcers of both feet and vascular ulcers of both lower legs. He is under the care of Dr. Malik, who ordered an arterial doppler earlier this week. The doppler shows multiple areas of stenosis and occlusion in both lower leg arteries. The patient reports that some of his current ulcers have been present for a very long time while others appeared within the past few days. He wears ugg boots and does not own diabetic shoes. 01/27/17. Seen by Dr. Holland. The patient returns to clinic with a posterior left lower leg ulcer that has been present for at least the past 6-12 months. Of note, the patient somewhat of a poor historian. He does not report pain at the site but states that it has been slowly increasing in size and has been bleeding recently and he's noticed a foul odor over the past few days. He does not report having a biopsy of this lesion and has been placed on antibiotics recently without any improvement. 11/27/[address] Holland. The patient reports that his right foot swelling continues to improve and there's been no drainage from the toe ulcers. 11/13/[address] Holland. The patient underwent additional PCI by Dr. Malik about one week ago and reports significant swelling in the right foot and lower leg the past few days. He does not report pain, fever, or chills and feels the right toe ulcers are improving and have minimal drainage. He's been using gentamicin ointment on the ulcer sites for a MRSA positive wound culture and systemic antibiotics have been deferred due to his history of severe c. difficile colitis. 10/28/14 Seen by Mike Mireles PA-C. The patient had PCI with Dr. Malik and reports that it was partially successful and that Dr. Malik plans to go in from a distal approach and attempt to open up more arteries in his right leg in 4-6 weeks time. The patient reports copious drainage from his toe wounds even after discontinuation of the topical gentamycin. 10/15/[address] Holland. The patient returns to our clinic with new right 2nd and 3rd toe ulcers and he's been referred by Dr. Malik, vascular surgery at [facility], who is planning PCI for severe PAD in the near future. He's not currently on antibiotics, reports minimal pain and drainage at the ulcer sites and he reports claudication but no rest pain today. Past Medical History This information was obtained from the patient Patient has a medical history of: Diabetes Mellitus Hypertension Coronary Artery Disease (CAD) Atrial fibrillation Carotid artery stenosis Transient Ischemic Attack (TIA) Atherosclerosis of lower extremity with claudication (s/p right leg PCI X2 by Dr. Malik in 11/04) Hyperlipidemia Aterial ulcers (right 2nd and 3rd toes; MRSA positive wound culture) Complaints and Symptoms This information was obtained from the patient Patient complains of: General Notes: I have reviewed and concur with the Review of Systems and Past Family Social History documents completed by the clinician, I have reviewed and concur with the Wound Assessment document completed by the clinician Cardiovascular (Central/Peripheral): Lower extremity (leg) swelling Ear/Nose/Mouth/Throat: Hearing Loss / Aid Hematologic/Lymphatic: Bleeding Tendency Integumentary (Hair/Skin/Nails): Open Sore Musculoskeletal: Muscle Weakness Neurological: Loss of Protective Sensation Prior Wound History: Drainage, Erythema, Pain Patient denies complaints or symptoms related to: Cardiovascular (Central): Irregular heart beat Cardiovascular (Central/Peripheral): Intermittent Claudication, Lower extremity (leg) resting pain Constitutional Symptoms (General Health): Chills, Fever, Marked Weight Change Gastrointestinal (GI): Nausea / Vomiting, Stomach/abdominal pain Hematologic/Lymphatic: Bleeding / Clotting Disorders Prior Wound History: Bleeding, Malodor Psychiatric: Memory Loss Respiratory: Oxygen Use, Shortness of Breath OBJECTIVE Constitutional Vital signs reviewed and noted. Well developed. Alert. Clean appearing.. Height/ Length: 72 in (182.88 cm), Weight: 216.7 lbs (98.5 kgs), BMI: 29.4, Temperature: 97.3 ?F ( 36.28 ?C), Pulse: 86 bpm, Respiratory Rate: 18 breaths/min, Capillary Blood Glucose: 167 mg /dl, Pulse Oximetry: 96 %. Vital Signs Notes: Glucose per patient Ears, Nose, Mouth, and Throat: No clinically significant hearing loss on informal examination. Respiratory: No respiratory distress. Even respirations and without use of accessory muscles.. Cardiovascular: Non-palpable pedal pulses bilaterally. 2+ bilateral lower leg edema. Integumentary (Hair, Skin) Mild periwound erythema without warmth. Refer to appropriate clinician wound documentation for this visit; right foot ulcer extends to subcut with base partially covered with pink granulation, remainder fibrin and slough, larger than on last review; left lateral foot ulcer extends to bone with overlying black, dry eschar; left 1st MTPJ ulcer extends to capsule which is covered with wet slough; left 1st toe ulcer extends to subcut with dry slough overlying base; left thigh wound extends to subcut with based mostly epithelialized. Wound #6 Right Metatarsal head fifth is a chronic Richards Grade 2 Diabetic Ulcer and has received a status of Not Healed. Subsequent wound encounter measurements are 0.5cm length x 1cm width x 0.2cm depth, with an area of 0.5 sq cm and a volume of 0.1 cubic cm. No tunneling has been noted. No sinus tract has been noted. No undermining has been noted. There is a moderate amount of sero-sanguineous drainage noted which has no odor. The patient reports a wound pain of level 0/10. The wound margin is attached. Wound bed has Yes epithelialization, No eschar, Yes slough, Yes pink, firm granulation. The periwound skin moisture is normal. The periwound skin exhibited: Callus, Erythema. The periwound skin did not exhibit: Brawny Induration, Edema, Excoriation, Induration, Crepitus, Fluctuance, Friable, Rash, Atrophie Monica, Cyanosis, Ecchymosis, Hemosiderosis , Pallor, Rubor. The temperature of the periwound skin is WNL. Periwound skin does not exhibit signs or symptoms of infection. Local Pulse is Doppler. Wound #11 Left Metatarsal head first is a chronic Richards Grade 3 Diabetic Ulcer and has received a status of Not Healed. Subsequent wound encounter measurements are 2.5cm length x 1.5cm width x 0.2cm depth, with an area of 3.75 sq cm and a volume of 0.75 cubic cm. Capsule is exposed. No tunneling has been noted. No sinus tract has been noted. No undermining has been noted. There is a moderate amount of sero-sanguineous drainage noted which has no odor. The patient reports a wound pain of level 0/10. The wound margin is attached. Wound bed has No epithelialization, No eschar, Yes slough, No granulation. The periwound skin exhibited: Edema, Induration, Moist, Erythema. The periwound skin did not exhibit: Brawny Induration, Excoriation, Callus, Crepitus, Fluctuance, Friable, Rash, Dry/Scaly, Maceration, Atrophie Sudley, Cyanosis, Ecchymosis, Hemosiderosis, Pallor, Rubor. The temperature of the periwound skin is WNL. Periwound skin presents with s/s of infection. Confirmation Description and Treatment Plan is: Signs and Symptoms Present. Local Pulse is Doppler. Wound #12 Left Great Toe is a chronic Richards Grade 3 Diabetic Ulcer and has received a status of Not Healed. Subsequent wound encounter measurements are 1.4cm length x 0.9cm width x 0.2cm depth, with an area of 1.26 sq cm and a volume of 0.252 cubic cm. No tunneling has been noted. No sinus tract has been noted. No undermining has been noted. There is a moderate amount of sero-sanguineous drainage noted which has no odor. The patient reports a wound pain of level 0/10. The wound margin is callus. Wound bed has No epithelialization, Yes eschar, Yes slough, No granulation. The periwound skin moisture is normal. The periwound skin color is normal. The periwound skin exhibited: Edema, Callus. The periwound skin did not exhibit: Brawny Induration, Excoriation, Induration, Crepitus, Fluctuance, Friable, Rash. The temperature of the periwound skin is WNL. Periwound skin presents with s/s of infection. Confirmation Description and Treatment Plan is: Signs and Symptoms Present. Local Pulse is Doppler. Wound #13 Left Metatarsal head fifth is a chronic Richards Grade 3 Diabetic Ulcer and has received a status of Not Healed. Subsequent wound encounter measurements are 3cm length x 2.4cm width x 0.4cm depth, with an area of 7.2 sq cm and a volume of 2.88 cubic cm. Capsule is exposed. No tunneling has been noted. No sinus tract has been noted. No undermining has been noted. There is a small amount of sero-sanguineous drainage noted which has no odor. The patient reports a wound pain of level 0/10. The wound margin is attached. Wound bed has No epithelialization, Yes eschar, Yes slough, Yes bright red, firm granulation. The periwound skin moisture is normal. The periwound skin exhibited: Edema, Callus, Erythema. The periwound skin did not exhibit: Brawny Induration, Excoriation, Induration, Crepitus, Fluctuance, Friable, Rash. The temperature of the periwound skin is WNL. Periwound skin presents with s/s of infection. Local Pulse is Doppler. Wound #18 Left Thigh is an acute Full Thickness Surgical Wound and has received a status of Not Healed. Subsequent wound encounter measurements are 0.2cm length x 0.1cm width x 0.1cm depth, with an area of 0.02 sq cm and a volume of 0.002 cubic cm. No tunneling has been noted. No sinus tract has been noted. No undermining has been noted. There is a small amount of sero-sanguineous drainage noted which has no odor. The patient reports a wound pain of level 0/10. The wound margin is attached. Wound bed has Yes epithelialization, No eschar, Yes slough, Yes pink, firm granulation. The periwound skin texture is normal. The periwound skin moisture is normal. The periwound skin color is normal. The temperature of the periwound skin is WNL. Periwound skin does not exhibit signs or symptoms of infection. Local Pulse is Doppler. Wound #19 Left Fifth Toe is an acute Richards Grade 2 Diabetic Ulcer and has received a status of Not Healed. Subsequent wound encounter measurements are 0.3cm length x 0.4cm width x 0.2cm depth, with an area of 0.12 sq cm and a volume of 0.024 cubic cm. No tunneling has been noted. No sinus tract has been noted. No undermining has been noted. There is a moderate amount of serous drainage noted which has no odor. The patient reports a wound pain of level 0/10. The wound margin is attached. Wound bed has No epithelialization, No eschar, Yes slough, No granulation. The periwound skin moisture is normal. The periwound skin color is normal. The periwound skin exhibited: Edema. The periwound skin did not exhibit: Brawny Induration, Excoriation, Induration, Callus, Crepitus, Fluctuance, Friable, Rash. The temperature of the periwound skin is WNL. Periwound skin does not exhibit signs or symptoms of infection. Local Pulse is Doppler. Neurological: Cranial nerves grossly intact with symmetric function normal by informal observation.. ASSESSMENT Active Problems ICD-10 (Encounter Diagnosis) L97.522 - Non-pressure chronic ulcer of other part of left foot with fat layer exposed (Encounter Diagnosis) L97.512 - Non-pressure chronic ulcer of other part of right foot with fat layer exposed (Encounter Diagnosis) E11.621 - Type 2 diabetes mellitus with foot ulcer (Encounter Diagnosis) L97.523 - Non-pressure chronic ulcer of other part of left foot with necrosis of muscle (Encounter Diagnosis) I70.248 - Atherosclerosis of [place] arteries of left leg with ulceration of other part of lower left leg (Encounter Diagnosis) S71.102D - Unspecified open wound, left thigh, subsequent encounter PROCEDURES Wound #6 Wound #6 (Diabetic Ulcer) is located on the right metatarsal head fifth. A skin/ subcutaneous tissue level surgical debridement with a total area debrided of 0.5 sq cm was performed by Wilton Holland MD. Subcutaneous was removed along with devitalized tissue: callus and slough. The following instrument(s) were used: curette. Pain control was achieved using 4% Lido. A time out was conducted prior to the start of the procedure. A minimal amount of bleeding was controlled with silver nitrate. The procedure was tolerated well with a pain level of 0 throughout and a pain level of 0 following the procedure. Post Debridement Measurements: 0.5cm length x 1cm width x 0.3cm depth; with an area of 0.5 sq cm and a volume of 0.15 cubic cm; Additional Information Muscle fascia or bone removed and sent to pathology?: No PLAN Wound Orders: Wound #6 Right Metatarsal head fifth Anesthetic Topical Xylocaine to wound bed. - In clinic. Cleanser Cleanse Wound: - Normal saline and gauze in clinic. May use distilled water at home. May Shower. - Use cast protector. Topical Treatments Antibiotic/Antimicrobial Ointment/Cream. - Gentamicin ointment Dressings Cover and secure with: - Foam secured with hypafix tape. Change Dressing: - Every other day. Wound #11 Left Metatarsal head first Anesthetic Topical Xylocaine to wound bed. - In clinic. Cleanser Cleanse Wound: - Normal saline and gauze in clinic. May use distilled water at home. May Shower. - Use cast protector. Dressings Primary dressing: - Silver alginate cut to fit in wound base. Cover and secure with: - Foam secured with hypafix tape. Change Dressing: - Every other day. Wound #12 Left Great Toe Anesthetic Topical Xylocaine to wound bed. - In clinic. Cleanser Cleanse Wound: - Normal saline and gauze in clinic. May use distilled water at home. May Shower. - Use cast protector. Dressings Primary dressing: - Silver alginate cut to fit in wound base. Cover and secure with: - Foam secured with hypafix tape. Change Dressing: - Every other day. Wound #13 Left Metatarsal head fifth Anesthetic Topical Xylocaine to wound bed. - In clinic. Cleanser Cleanse Wound: - Normal saline and gauze in clinic. May use distilled water at home. May Shower. - Use cast protector. Dressings Primary dressing: - Silver alginate cut to fit in wound base. Cover and secure with: - Foam secured with hypafix tape. Change Dressing: - Every other day. Wound #18 Left Thigh Anesthetic Topical Xylocaine to wound bed. - In clinic. Cleanser Cleanse Wound: - Normal saline and gauze in clinic. May use distilled water at home. May Shower. - Use cast protector. Dressings Cover and secure with: - Covrsite 4x4. Change Dressing: - Twice a week. Wound #19 Left Fifth Toe Anesthetic Topical Xylocaine to wound bed. - In clinic. Cleanser Cleanse Wound: - Normal saline and gauze in clinic. May use distilled water at home. May Shower. - Use cast protector. Dressings Primary dressing: - Silver alginate cut to fit in wound base. Cover and secure with: - Foam secured with hypafix tape. Change Dressing: - Every other day. Additional Orders: Off-Loading Keep weight off: - Both feet as much as possible. Use/Wear when Walking: - Custom diabetic shoes. Follow-Up Appointments Return Appointment: - - One week. Other information: If you develop fever, chills, increased pain, drainage, redness or swelling please call our office. If after hours, respond to the ER. Should you experience any significant changes in your wound(s) or have any questions regarding your home care instructions please contact the wound center @ [phone]. If after hours, contact your primary care physician or go to the hospital emergency room. Scribing Attestation I attest, as the nurse, that I scribed these orders for the physician. General Notes: Please follow up with primary care regarding shortness of breath and increased weight. I've reviewed the clinician's documentation and agree with the evaluation and plan as written. In addition, the patient's ulcer demonstrates evidence of non-viable devitalized tissue which will continue to benefit from sharp debridement to help promote granulation and expedite healing. Also, we'll contact the patient's PCP regarding his recent weight gain and orthopnea. 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 Electronic Signature(s) Signed By: Date: Wilton Holland MD 11/16/2017 08:47:14 Entered By: Wilton Holland on 11/16/2017 08:35:15
== END ==
PROVIDERS: PCP Family Medicine; Visit Provider Internal Medicine
DX: E11.621 Type 2 diabetes mellitus with foot ulcer (principal); L97.524 Non-pressure chronic ulcer of other part of left foot with necrosis of bone; L97.512 Non-pressure chronic ulcer of other part of right foot with fat layer exposed; I70.248 Atherosclerosis of native arteries of left leg with ulceration of other part of lower leg; S71.102D Unspecified open wound, left thigh, subsequent encounter; R63.5 Abnormal weight gain
CPT/HCPCS: 11042

== ENCOUNTER → 2017-11-21 15:16 | Outpatient (CLI) | payer MEDICARE, SELFPAY ==
--- NOTE | 2017-11-21 | OV.WND_ITS ---
Progress Note Details Patient Name: Jay Lepe Patient Number: [id number] PatientPatientDate: 11/21/2017 Clinician: Chloe Gonzalez Physician / Serger: Wilton Holland SUBJECTIVE Chief Complaint This information was obtained from the patient Diabetic foot ulcers to both feet and surgical wound on left thigh. Allergies Ebvcnuz-Qnf-Glm Reductase Inhibitors, Sulfa (Sulfonamide Antibiotics), amlodipine HPI This information was obtained from the patient 11/21/17. Seen by Dr. Holland. The patient has scheduled an appointment at to review his severe left leg PAD however it's not until 12/18. He continues to report intermittent pain in the left foot however he does not report increased drainage from the left or right foot diabetic ulcers and he's not currently on antibiotics. He's also begun to lose weight and his leg swelling has decreased since being restarted on torsemide which has recently held. Of note, he seems a bit confused regarding taking his potassium with the increased dose of spironolactone and in the context of when he was not taking torsemide. I'd discussed the danger in doing this and risk for hyperkalemia at his last visit. 11/15/17. Seen by Dr. Holland. The patient was seen by podiatry for the left foot diabetic ulcers at who's now referred to vascular surgery due to his severe left leg PAD. He does not yet have an appointment however. He does continue to report pain in the foot also. Of note, his weight is up 10 lbs in the past 2 weeks and he reports orthopnea since stopping his Lasix. Regarding the right plantar foot diabetic ulcer, he does not report pain or significant drainage from this site. 11/09/17. Seen by Mike Mireles PA-C. The patient reports that he has an appointment tomorrow with a vascular surgeon at the in [place] who will take on his case. Drainage from his ulcers has not increased. 11/02/17. Seen by Dr. Holland. The patient was seen by Dr. 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 He suffers from bilateral severe PAD which has complicated and contributed to the very refractory nature of the bilateral diabetic foot ulcers. He does not report increased pain or drainage from these ulcers nor from the slowly healing left thigh surgical wound that we've been monitoring. 10/27/17. Seen by Dr. Holland. The patient does not report any acute changes regarding his bilateral diabetic foot ulcers since his last visit. The wound culture taken from the non-healing left lateral thigh surgical site grew a coag negative Staph and he's been applying topical antibiotic as prescribed. He has an appointment later today with Dr. Jonas to discuss the SHAILESH study that was done on Tuesday and possible amputation of the left 5th MT and toe. He also saw his linux administrator, Dr. Finney, this week and states there was no change in his care plan. The patient notes he stopped taking spironolactone recently on his own accord however has not informed his other providers of this. He's also not discussed the option of a second opinion in relation to his left leg PAD and surgical options for the left 5th MT yet with his PCP as we'd discussed last week. 10/20/17. Seen by Dr. Holland. The patient does not report any acute changes regarding his bilateral diabetic foot ulcers and he's scheduled to have an SHAILESH study done next Tuesday to further evaluate his bilateral lower leg PAD that's significantly complicating his wound healing. He's also asked me to take a look at a non-healing left posterior thigh surgical wound at the site of a biopsy performed in early August. Of note, his anticoagulation was changed from warfarin to Eliquis since his last visit. 10/11/17. Seen by Dr. Holland. The patient's amputation of the left 5th met head was postponed due to and elevated INR. He also had another arterial Doppler performed today to reevaluate his left lower leg PAD. Of note, he underwent angioplasty under Dr. Rojas, interventional radiology, in August of this year and had angioplasty a few years ago with Dr. Malik whom the patient states accessed the left lower leg from the ankle. He does not report pain or increased drainage associated with the left foot diabetic ulcers but does report some pain associated with the right plantar foot diabetic ulcer. He also notes a new wound over the dorsum of the right foot but does not know how it occurred. His blood sugars have also been a bit elevated over 200 and he's using a walker and diabetic shoes while at home but a cane when away from the house. 09/30/2017. Seen by Dr. Holland. The patient is scheduled for amputation of the left 5th met head and toe next Tuesday. He does not report significant drainage or pain associated with the overlying diabetic ulcer nor the other left and right foot diabetic ulcers since his last visit. His blood sugars continue to be well controlled and he is not currently on antibiotics. 09/22/17. Seen by Dr. Holland. The patient feels his leg and abdominal swelling have been progressing over the past few weeks and he notes he's not sure who manages his diruetics. He does not report significant pain or increased drainage associated with the bilateral diabetic foot ulcers and he's scheduled to see Dr. Jonas later today to discuss surgical options to treat the left lateral and medial DFU's with exposed capsule. His blood sugars also are well controlled. Of note, he reports a growing left lateral thigh lesion also that he first noticed about one month ago. He does not report pain or drainage from the lesion and states he 's not yet discussed this with his PCP. 09/16/17. Seen by Dr. Holland. The patient reports some intermittent pain along the left fifth MTPJ at the site of the diabetic ulcer when walking. He does not report significant drainage associated with this ulcer and or the other left nor right foot diabetic ulcers since his last visit. He is scheduled to see Dr. Jonas next week who is considering possible amputation of the head of the left fifth metatarsal. 09/09/17. Seen by Dr. Holland. The patient was seen by Dr. Jonas today who's consider deep debridement of the left 5th MTPJ noting the overlying Richards grade 3 diabetic foot ulcer. She's reportedly deciding on what type of imaging to order and she performed some debridement today. The patient does not report pain or significant drainage from this site nor the other left and right foot diabetic ulcers. He also underwent angioplasty for his left lower leg PAD 2 weeks ago and does not report any complications. 08/31/17. Seen by Dr. Holland. The patient does not report pain or increased drainage associated with the bilateral foot diabetic ulcers since his last visit and he continues on clindamycin for the Staph haemolyticus positive wound culture taken from the left 5th MTPJ ulcer site last week. He's also scheduled to see Dr. Jonas a week from Tuesday for consideration of possible deep debridement of the left 5th MTPJ ulcer. 08/25/17. Seen by Dr. Holland. The patient does not report pain or increased drainage associated with the bilateral foot diabetic ulcers since his last visit and he's about a week out from angioplasty for left leg PAD. His wound culture taken from the exposed capsule of the left 5th MTPJ grew Staph haemolyticus and he's not currently on antibiotics. He does not report pain a the site nor fevers or feeling unwell in general. 08/19/17. Seen by Dr. Holland. The patient underwent angioplasty last for the left leg PAD and feels his leg pain has mostly resolved since the procedure. He does not report significant drainage or pain associated with the bilateral diabetic foot ulcers nor the left gluteal pressure ulcer and has been offloading the sites and changing dressings as recommended. Also, the patient's blood sugar is again elevated over 250 today and his has been an ongoing issue the past few weeks. 08/10/17. Seen by Dr. Holland. The patient does not report pain associated with the chronic left and right foot diabetic ulcers since his last visit and he's scheduled to see Dr. Rojas tomorrow for intervention to treat his severe PAD of the left lower leg. 08/05/17. Seen by Dr. Holland. The patient does not report pain associated with the chronic left and right foot diabetic ulcers since his last visit. He's scheduled to see Dr. 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 The patient also reports a new ulcer over the left buttock and states it's somewhat tender but he does not report significant drainage from the site. He's applying a topical antibiotic also. 07/29/17. Seen by Dr. Holland. The patient does not report pain associated with the chronic left and right foot diabetic ulcers since his last visit. His blood sugars a significantly elevated today over 250 and he states he ate strawberries last night which may be the cause. He 's also scheduled to see Dr. Rojas on the 08 of August to evaluate his left leg PAD and consider intervention at that time. 07/22/17. Seen by Mike Mireles PA-C. The patient reports no increase in pain or drainage from his ulcers of right and left lower extremities. His leg pain is reportedly stable as well. He notes some blood sugars this week above 150. 07/18/17. Seen by Mike Mireles PA-C. The patient reports bilateral leg pain that occurs with exertion and is relieved by rest. He is under the care of Dr. Malik (Cardiology) who was considering angioplasty to improve his lower extremity circulation but has deferred this option due to poor renal function. The patient reports continued drainage from his lower extremity ulcers. 07/08/17. Seen By Dr. Holland. The patient is a report pain nor significant drainage associated with the chronic right and left foot diabetic ulcers since his last visit. He does feel that the left first toe is a bit red and intermittently tender. His recent wound culture grew a coag-negative staph from the ulcer site and he does not report fevers or feeling unwell in general. 07/01/17. Seen by Dr. Holland. The patient reports some modest pain associated with the chronic right lateral plantar foot diabetic ulcer as well as the right heel diabetic ulcer. He does not report significant drainage drainage from the sites nor the other right and left lower leg diabetic ulcers. He is on Augmentin for the recent positive wound culture is not report any adverse side effects. 06/24/17. Seen by Mike Mireles PA-C. The patient returns to our clinic with diabetic ulcers of both feet and vascular ulcers of both lower legs. He is under the care of Dr. Malki, who ordered an arterial doppler earlier this week. The doppler shows multiple areas of stenosis and occlusion in both lower leg arteries. The patient reports that some of his current ulcers have been present for a very long time while others appeared within the past few days. He wears ugg boots and does not own diabetic shoes. 01/27/17. Seen by Dr. Holland. The patient returns to clinic with a posterior left lower leg ulcer that has been present for at least the past 6-12 months. Of note, the patient somewhat of a poor historian. He does not report pain at the site but states that it has been slowly increasing in size and has been bleeding recently and he's noticed a foul odor over the past few days. He does not report having a biopsy of this lesion and has been placed on antibiotics recently without any improvement. 11/27/[address] Holland. The patient reports that his right foot swelling continues to improve and there's been no drainage from the toe ulcers. 11/13/[address] Holland. The patient underwent additional PCI by Dr. Malik about one week ago and reports significant swelling in the right foot and lower leg the past few days. He does not report pain, fever, or chills and feels the right toe ulcers are improving and have minimal drainage. He's been using gentamicin ointment on the ulcer sites for a MRSA positive wound culture and systemic antibiotics have been deferred due to his history of severe c. difficile colitis. 10/28/14 Seen by Mike Mireles PA-C. The patient had PCI with Dr. Malik and reports that it was partially successful and that Dr. Malik plans to go in from a distal approach and attempt to open up more arteries in his right leg in 4-6 weeks time. The patient reports copious drainage from his toe wounds even after discontinuation of the topical gentamycin. 10/15/[address] Holland. The patient returns to our clinic with new right 2nd and 3rd toe ulcers and he's been referred by Dr. Malik, vascular surgery at [facility], who is planning PCI for severe PAD in the near future. He's not currently on antibiotics, reports minimal pain and drainage at the ulcer sites and he reports claudication but no rest pain today. Past Medical History This information was obtained from the patient Patient has a medical history of: Diabetes Mellitus Hypertension Coronary Artery Disease (CAD) Atrial fibrillation Carotid artery stenosis Transient Ischemic Attack (TIA) Atherosclerosis of lower extremity with claudication (s/p right leg PCI X2 by Dr. Malik in 11/04) Hyperlipidemia Aterial ulcers (right 2nd and 3rd toes; MRSA positive wound culture) Complaints and Symptoms This information was obtained from the patient Patient complains of: General Notes: I have reviewed and concur with the Review of Systems and Past Family Social History documents completed by the clinician, I have reviewed and concur with the Wound Assessment document completed by the clinician Cardiovascular (Central/Peripheral): Lower extremity (leg) swelling Ear/Nose/Mouth/Throat: Hearing Loss / Aid Hematologic/Lymphatic: Bleeding Tendency Integumentary (Hair/Skin/Nails): Open Sore Musculoskeletal: Muscle Weakness Neurological: Loss of Protective Sensation Prior Wound History: Drainage, Erythema, Pain Patient denies complaints or symptoms related to: Cardiovascular (Central): Irregular heart beat Cardiovascular (Central/Peripheral): Intermittent Claudication, Lower extremity (leg) resting pain Constitutional Symptoms (General Health): Chills, Fever, Marked Weight Change Gastrointestinal (GI): Nausea / Vomiting, Stomach/abdominal pain Hematologic/Lymphatic: Bleeding / Clotting Disorders Prior Wound History: Bleeding, Malodor Psychiatric: Memory Loss Respiratory: Oxygen Use, Shortness of Breath OBJECTIVE Constitutional BP elevated; Afebrile; Alert and in no distress. Frail appearing. Height/Length : 72 in (182.88 cm), Weight: 209.6 lbs (95.27 kgs), BMI: 28.4, Temperature: 97.8 ?F (36.56 ?C), Pulse: 79 bpm, Respiratory Rate: 18 breaths/min, Blood Pressure: 155/76 mmHg, Capillary Blood Glucose: 121 mg/dl, Pulse Oximetry: 93 %. Vital Signs Notes: Glucose per patient. Ears, Nose, Mouth, and Throat: Mild hearing deficit. Respiratory: No respiratory distress. Even respirations and without use of accessory muscles.. Cardiovascular: 1+ bilateral lower leg edema; improved from last visit. Integumentary (Hair, Skin) Mild periwound erythema without warmth. Refer to appropriate clinician wound documentation for this visit; right foot ulcer extends to subcut with base partially covered with pink granulation, remainder fibrin and slough, larger than on last review; left lateral foot ulcer extends to bone with overlying black, dry eschar; left 1st MTPJ ulcer extends to capsule which is covered with wet slough; left 1st toe ulcer extends to subcut with dry slough overlying base; left thigh wound healed. Wound #6 Right Metatarsal head fifth is a chronic Richards Grade 2 Diabetic Ulcer and has received a status of Not Healed. Subsequent wound encounter measurements are 0.5cm length x 0.7cm width x 0.3cm depth, with an area of 0.35 sq cm and a volume of 0.105 cubic cm. No tunneling has been noted. No sinus tract has been noted. No undermining has been noted. There is a moderate amount of sero-sanguineous drainage noted which has no odor. The patient reports a wound pain of level 0/10. The wound margin is attached. Wound bed has No epithelialization, No eschar, Yes slough, No granulation. The periwound skin moisture is normal. The periwound skin did not exhibit: Brawny Induration, Edema, Excoriation, Induration, Callus, Crepitus, Fluctuance, Friable, Rash, Atrophie Monica, Cyanosis, Ecchymosis, Erythema, Hemosiderosis, Pallor, Rubor. The temperature of the periwound skin is WNL. Periwound skin does not exhibit signs or symptoms of infection. Local Pulse is Doppler. Wound #11 Left Metatarsal head first is a chronic Richards Grade 3 Diabetic Ulcer and has received a status of Not Healed. Subsequent wound encounter measurements are 2.2cm length x 1.6cm width x 0.4cm depth, with an area of 3.52 sq cm and a volume of 1.408 cubic cm. Capsule is exposed. No tunneling has been noted. No sinus tract has been noted. No undermining has been noted. There is a moderate amount of sero-sanguineous drainage noted which has no odor. The patient reports a wound pain of level 0/10. The wound margin is attached. Wound bed has No epithelialization, No eschar, Yes slough, No granulation. The periwound skin exhibited: Edema, Induration, Moist, Erythema. The periwound skin did not exhibit: Brawny Induration, Excoriation, Callus, Crepitus, Fluctuance, Friable, Rash, Dry/Scaly, Maceration, Atrophie Monica, Cyanosis, Ecchymosis, Hemosiderosis, Pallor, Rubor. The temperature of the periwound skin is WNL. Periwound skin presents with s/s of infection. Confirmation Description and Treatment Plan is: Signs and Symptoms Present. Local Pulse is Doppler. Wound #12 Left Great Toe is a chronic Richards Grade 3 Diabetic Ulcer and has received a status of Not Healed. Subsequent wound encounter measurements are 1.4cm length x 0.8cm width x 0.3cm depth, with an area of 1.12 sq cm and a volume of 0.336 cubic cm. Necrotic bone is exposed. No tunneling has been noted. No sinus tract has been noted. No undermining has been noted. There is a moderate amount of sero-sanguineous drainage noted which has no odor. The patient reports a wound pain of level 0/10. The wound margin is callus. Wound bed has No epithelialization, Yes eschar, Yes slough, No granulation. The periwound skin moisture is normal. The periwound skin color is normal. The periwound skin exhibited: Edema, Callus. The periwound skin did not exhibit: Brawny Induration, Excoriation, Induration, Crepitus, Fluctuance, Friable, Rash. The temperature of the periwound skin is WNL. Periwound skin presents with s/s of infection. Confirmation Description and Treatment Plan is: Signs and Symptoms Present. Local Pulse is Doppler. Wound #13 Left Metatarsal head fifth is a chronic Richards Grade 3 Diabetic Ulcer and has received a status of Not Healed. Subsequent wound encounter measurements are 3.4cm length x 2.6cm width x 0.5cm depth, with an area of 8.84 sq cm and a volume of 4.42 cubic cm. Capsule is exposed. No tunneling has been noted. No sinus tract has been noted. No undermining has been noted. There is a small amount of sero-sanguineous drainage noted which has no odor. The patient reports a wound pain of level 0/10. The wound margin is attached. Wound bed has No epithelialization, Yes eschar, Yes slough, No granulation. The periwound skin moisture is normal. The periwound skin exhibited: Edema, Callus, Erythema. The periwound skin did not exhibit: Brawny Induration, Excoriation, Induration, Crepitus, Fluctuance, Friable, Rash. The temperature of the periwound skin is WNL. Periwound skin presents with s/s of infection. Local Pulse is Doppler. Wound #18 Left Thigh is an acute Surgical Wound and has received an outcome of Healed - no new wound(s). Subsequent wound encounter measurements are 0cm length x 0cm width with no measurable depth, with an area of 0 sq cm . No tunneling has been noted. No sinus tract has been noted. No undermining has been noted. There was no drainage noted. The patient reports a wound pain of level 0/10. The wound margin is attached. Wound bed has Yes epithelialization, No eschar, No slough, No granulation. The periwound skin texture is normal. The periwound skin moisture is normal. The periwound skin color is normal. The temperature of the periwound skin is WNL. Periwound skin does not exhibit signs or symptoms of infection. Local Pulse is Doppler. Wound #19 Left Fifth Toe is an acute Richards Grade 2 Diabetic Ulcer and has received a status of Not Healed. Subsequent wound encounter measurements are 0.4cm length x 0.2cm width x 0.3cm depth, with an area of 0.08 sq cm and a volume of 0.024 cubic cm. No tunneling has been noted. No sinus tract has been noted. No undermining has been noted. There is a moderate amount of serous drainage noted which has no odor. The patient reports a wound pain of level 0/10. The wound margin is attached. Wound bed has No epithelialization, No eschar, Yes slough, No granulation. The periwound skin moisture is normal. The periwound skin color is normal. The periwound skin exhibited: Edema. The periwound skin did not exhibit: Brawny Induration, Excoriation, Induration, Callus, Crepitus, Fluctuance, Friable, Rash. The temperature of the periwound skin is WNL. Periwound skin does not exhibit signs or symptoms of infection. Local Pulse is Doppler. Neurological: Cranial nerves grossly intact with symmetric function normal by informal observation.. ASSESSMENT Active Problems ICD-10 (Encounter Diagnosis) L97.522 - Non-pressure chronic ulcer of other part of left foot with fat layer exposed (Encounter Diagnosis) L97.512 - Non-pressure chronic ulcer of other part of right foot with fat layer exposed (Encounter Diagnosis) E11.621 - Type 2 diabetes mellitus with foot ulcer (Encounter Diagnosis) L97.523 - Non-pressure chronic ulcer of other part of left foot with necrosis of muscle (Encounter Diagnosis) I70.248 - Atherosclerosis of [place] arteries of left leg with ulceration of other part of lower left leg (Encounter Diagnosis) R60.0 - Localized edema PROCEDURES Wound #6 Wound #6 (Diabetic Ulcer) is located on the right metatarsal head fifth. A skin/ subcutaneous tissue level surgical debridement with a total area debrided of 0.35 sq cm was performed by Wilton Holland MD. Subcutaneous was removed along with devitalized tissue: exudate and slough. The following instrument(s) were used: curette. Pain control was achieved using 4% Lido. A time out was conducted prior to the start of the procedure. A minimal amount of bleeding was controlled with pressure. The patient tolerated the procedure with a pain level of 0 throughout and a pain level of 0 following the procedure. Post Debridement Measurements: 0.5cm length x 0.7cm width x 0.3cm depth; with an area of 0.35 sq cm and a volume of 0.105 cubic cm; Additional Information Muscle fascia or bone removed and sent to pathology?: No PLAN Wound Orders: Wound #6 Right Metatarsal head fifth Anesthetic Topical Xylocaine to wound bed. - In clinic. Cleanser Cleanse Wound: - Normal saline and gauze in clinic. May use distilled water at home. May Shower. - Use cast protector. Topical Treatments Antibiotic/Antimicrobial Ointment/Cream. - Iodosorb to wound bed. Dressings Cover and secure with: - Foam secured with hypafix tape. Change Dressing: - Every other day. Follow-Up Appointments Return Appointment: - - One week. Other information: If you develop fever, chills, increased pain, drainage, redness or swelling please call our office. If after hours, respond to the ER. Should you experience any significant changes in your wound(s) or have any questions regarding your home care instructions please contact the wound center @ [phone]. If after hours, contact your primary care physician or go to the hospital emergency room. Scribing Attestation I attest, as the nurse, that I scribed these orders for the physician. Wound #11 Left Metatarsal head first Anesthetic Topical Xylocaine to wound bed. - In clinic. Cleanser Cleanse Wound: - Normal saline and gauze in clinic. May use distilled water at home. May Shower. - Use cast protector. Dressings Pack wound: - Iodosorb to wound bed Cover and secure with: - Foam secured with hypafix tape. Change Dressing: - Every other day. Follow-Up Appointments Return Appointment: - - One week. Other information: If you develop fever, chills, increased pain, drainage, redness or swelling please call our office. If after hours, respond to the ER. Should you experience any significant changes in your wound(s) or have any questions regarding your home care instructions please contact the wound center @ [phone]. If after hours, contact your primary care physician or go to the hospital emergency room. Scribing Attestation I attest, as the nurse, that I scribed these orders for the physician. Wound #12 Left Great Toe Anesthetic Topical Xylocaine to wound bed. - In clinic. Cleanser Cleanse Wound: - Normal saline and gauze in clinic. May use distilled water at home. May Shower. - Use cast protector. Dressings Primary dressing: - Iodosorb to wound bed. Cover and secure with: - Foam secured with hypafix tape. Change Dressing: - Every other day. Follow-Up Appointments Return Appointment: - - One week. Other information: If you develop fever, chills, increased pain, drainage, redness or swelling please call our office. If after hours, respond to the ER. Should you experience any significant changes in your wound(s) or have any questions regarding your home care instructions please contact the wound center @ [phone]. If after hours, contact your primary care physician or go to the hospital emergency room. Scribing Attestation I attest, as the nurse, that I scribed these orders for the physician. Wound #13 Left Metatarsal head fifth Anesthetic Topical Xylocaine to wound bed. - In clinic. Cleanser Cleanse Wound: - Normal saline and gauze in clinic. May use distilled water at home. May Shower. - Use cast protector. Dressings Primary dressing: - Iodosorb to wound bed. Cover and secure with: - Foam secured with hypafix tape. Change Dressing: - Every other day. Follow-Up Appointments Return Appointment: - - One week. Other information: If you develop fever, chills, increased pain, drainage, redness or swelling please call our office. If after hours, respond to the ER. Should you experience any significant changes in your wound(s) or have any questions regarding your home care instructions please contact the wound center @ [phone]. If after hours, contact your primary care physician or go to the hospital emergency room. Scribing Attestation I attest, as the nurse, that I scribed these orders for the physician. Wound #19 Left Fifth Toe Anesthetic Topical Xylocaine to wound bed. - In clinic. Cleanser Cleanse Wound: - Normal saline and gauze in clinic. May use distilled water at home. May Shower. - Use cast protector. Dressings Primary dressing: - Iodosorb to wound bed. Cover and secure with: - Foam secured with hypafix tape. Change Dressing: - Every other day. Follow-Up Appointments Return Appointment: - - One week. Other information: If you develop fever, chills, increased pain, drainage, redness or swelling please call our office. If after hours, respond to the ER. Should you experience any significant changes in your wound(s) or have any questions regarding your home care instructions please contact the wound center @ [phone]. If after hours, contact your primary care physician or go to the hospital emergency room. Scribing Attestation I attest, as the nurse, that I scribed these orders for the physician. Additional Orders: Off-Loading Keep weight off: - Both feet as much as possible. Use/Wear when Walking: - Custom diabetic shoes. I've reviewed the clinician's documentation and agree with the evaluation and plan as written. In addition, the patient's ulcer demonstrates evidence of non-viable devitalized tissue which will continue to benefit from sharp debridement to help promote granulation and expedite healing. Also, I've offered to help facilitate a near term vascular consult at either [facility] or [facility], where he receives most of his specialist care, and the patient will liaise with his PCP regarding this issue. I've also advised him regarding the risk of elevated potassium levels in the context of taking spironolactone and potassium supplementation and he'll again discuss this with Dr. Claire, his PCP. Electronic Signature(s) Signed By: Date: Wilton Holland MD 11/22/2017 09:04:29 Entered By: Wilton Holland on 11/22/2017 08:50:10
== END ==
PROVIDERS: PCP Family Medicine; Visit Provider Internal Medicine
DX: E11.621 Type 2 diabetes mellitus with foot ulcer (principal); L97.524 Non-pressure chronic ulcer of other part of left foot with necrosis of bone; I70.248 Atherosclerosis of native arteries of left leg with ulceration of other part of lower leg
CPT/HCPCS: 11042